=== PATIENT | female | born 1930 | race Caucasian/White ===

== ENCOUNTER 2017-02-12 19:11 | Emergency (ER) | payer MEDICARE, OTHER ==
[2017-02-12] MEDS ORDERED: Sodium Chloride 0.9% 10 ML Syringe FLUSH PRN (19:39)
[2017-02-12] MEDS ORDERED: LORazepam 2 MG/ML MDV IVPUSH ONE (19:39)
[2017-02-12] MEDS ORDERED: Ondansetron 4 MG/2 ML SDV IVPUSH ONE (19:39)
[2017-02-12] MEDS ORDERED: Famotidine 20 MG/2 ML SDV IVPUSH ONE (19:39)
--- NOTE | 2017-02-12 21:05 | EDM.PDOC ---
ED HISTORY OF PRESENT ILLNESS - General Chief Complaint: Chest Pain Stated Complaint: CHEST PAIN VOMITING Time Seen by Provider: 02/12/17 19:29 Source of Information: Reports: Patient - History of Present Illness INITIAL COMMENTS - FREE TEXT/NARRATIVE: 86 year old female not feeling well since eating out yesterday noon, had some salsa that seemed to upset her stomach. No appetite today, than started with upper abd pain radiating up into chest, has had nausea this past afternoon, dry heaves, no diarrhea. No hx of CAD. Not short of breath. No pain to shoulder or arm. She has not been coughing. No known hx of CAD - Related Data Allergies/ADRs: Allergies Allergy/AdvReac Type Severity Reaction Status Date / Time No Known Allergies Allergy Verified 02/12/17 19:17 Home Meds: Home Meds Calcium Carbonate [Calcium] 500 mg PO DAILY 07/27/15 [History] Clopidogrel [Plavix] 75 mg PO DAILY 07/27/15 [History] Escitalopram [Lexapro] 20 mg PO DAILY 07/27/15 [History] Gabapentin [Neurontin] 300 mg PO BEDTIME 07/27/15 [History] Glucosamine/Chondro Smith A [Cosamin DS] 1 tab PO DAILY 07/27/15 [History] Levothyroxine [Synthroid] 100 mcg PO DAILY 07/27/15 [History] Multivitamin [One Daily Multivitamin] 1 tab PO DAILY 07/27/15 [History] Simvastatin [Zocor] 20 mg PO BEDTIME 07/27/15 [History] traMADol [Ultram] 50 mg PO BID PRN 07/27/15 [History] Docusate Sodium [Colace] 100 mg PO BID cap 01/14/16 [Rx] Diclofenac Sodium [Voltaren 1% Gel] 1 dose TOP BID 02/12/17 [History] Ondansetron [Zofran ODT] 4 mg PO Q8H PRN #7 tab.dis 02/12/17 [Rx] Pramipexole [Mirapex] 0.5 mg PO DAILY 02/12/17 [History] Past Medical History HEENT History: Reports: Hard of hearing, Impaired vision Other HEENT History: wears eyeglasses, hearing aids, dentures Cardiovascular History: Reports: High cholesterol Other Cardiovascular History: states is on Zocor for prevention of stroke, does not have high cholesterol. Gastrointestinal History: Reports: Bowel obstruction, Chronic constipation, Diverticulosis Other Gastrointestinal History: nausea/vomiting, small bowel resection Genitourinary History: Reports: Urinary incontinence Other Genitourinary History: cystocele, rectocele, pelvic orgran prolapse [employer]CH[employer]IC[employer] History: Reports: , Prolapsed uterus Musculoskeletal History: Reports: Arthritis, Osteoporosis Other Musculoskeletal History: DJD Neurological History: Reports: Migraines Other Neuro History: states mother had stroke, states was started on Plavix and Zocor for preventative measures only. 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 - Past Surgical History HEENT Surgical History: Reports: Cataract surgery, Naso-sinus surgery Other HEENT Surgeries/Procedures: Nasal obstruction GI Surgical History: Reports: Small bowel Female Surgical History: Reports: Hysterectomy Endocrine Surgical History: Reports: Thyroidectomy Musculoskeletal Surgical History: Reports: Knee replacement Social & Family History - Family History Family Medical History: Noncontributory Neurological: Reports: CVA - Tobacco Use Smoking Status *Q: Never Smoker Second Hand Smoke Exposure: No - Recreational Drug Use Recreational Drug Use: No Drug Use in Last 12 Months: No - Living Situation & Occupation Living situation: Reports: , with spouse Occupation: retired ED ROS GENERAL - Review of Systems Review Of Systems: See Below Constitutional: Denies: fever, chills, diaphoresis HEENT: Reports: No symptoms. Denies: Throat pain, Throat swelling Respiratory: Denies: Shortness of Breath, Pleuritic Chest Pain, Cough Cardiovascular: Reports: Chest pain (mild discomfort lower ant. chest). Denies : Edema, Lightheadedness, Syncope GI/Abdominal: Reports: Abdominal pain (upper mid abd), Nausea (gone), Vomiting ( she has had some dry heaves). Denies: Diarrhea Musculoskeletal: Denies: neck pain, shoulder pain, arm pain Skin: Reports: no symptoms Neurological: Reports: Dizziness. Denies: Trouble Speaking, Change in Speech ED EXAM, GENERAL - Physical Exam Exam: See Below General Appearance: alert, anxious, mild distress Eye Exam: bilateral eye: PERRL Throat/Mouth: Normal inspection, Normal oropharynx Head: atraumatic. No: facial swelling Neck: supple, full range of motion, other (no JVD) Respiratory/Chest: no respiratory distress, lungs clear, normal breath sounds Cardiovascular: regular rate, rhythm GI/Abdominal: tender (mild tenderness upper mid abd. ). No: guarding Back Exam: No: CVA tenderness (L), CVA tenderness (R) Extremities: normal inspection. No: pedal edema, leg pain, increased warmth, redness Neurological: alert, oriented, no motor/sensory deficits Skin Exam: Warm, Dry, Normal color EKG INTERPRETATION EKG Date: 02/12/17 Rhythm: NSR Dale: normal P-wave: present QRS: other (q waves III and AVF) ST-T: depressed (AVL, V5,V6) Course - Vital Signs Last Recorded V/S: Last Vital Signs Temp 98.1 F 02/12/17 21:20 Pulse 72 02/12/17 21:20 Resp 20 02/12/17 21:20 BP 115/64 02/12/17 21:20 Pulse Ox 96 02/12/17 21:20 - Orders/Labs/Meds Labs: Laboratory Tests 02/12/17 02/12/17 Range/Units 19:25 19:25 WBC 6.58 (3.98-10.04) K/mm3 RBC 4.41 (3.98-5.22) M/mm3 Hgb 13.0 (11.2-15.7) gm/L Hct 37.6 (34.1-44.9) % MCV 85.3 (79.4-94.8) fl MCH 29.5 (25.6-32.2) pg MCHC 34.6 (32.2-35.5) g/dl RDW Std Deviation 41.1 (36.4-46.3) fL Plt Count 208 (182-369) K/mm3 MPV 10.3 (9.4-12.3) fl Neut % (Auto) 92.0 H (34.0-71.1) % Lymph % (Auto) 3.6 L (19.3-51.7) % Griggs % (Auto) 4.0 L (4.7-12.5) % Eos % (Auto) 0 L (0.7-5.8) Baso % (Auto) 0.2 (0.1-1.2) % Neut # (Auto) 6.06 (1.56-6.13) K/mm3 Lymph # (Auto) 0.24 L (1.18-3.74) K/mm3 Griggs # (Auto) 0.26 (0.24-0.36) K/mm3 Eos # (Auto) 0.00 L (0.04-0.36) K/mm3 Baso # (Auto) 0.01 (0.01-0.08) K/mm3 Manual Slide Review Abnormal smear Sodium 139 (136-145) mEq/L Potassium 3.9 (3.5-5.1) mEq/L Chloride 104 (98-107) mEq/L Carbon Dioxide 28 (21-32) mEq/L Anion Gap 10.9 (5-15) BUN 21 H (7-18) mg/dL Creatinine 0.7 (0.55-1.02) mg/dL Est Cr Clr Drug Dosing 47.96 mL/min Estimated GFR (MDRD) > 60 (>60) mL/min BUN/Creatinine Ratio 30.0 H (14-18) Glucose 127 H (83-115) mg/dL Calcium 8.6 (8.5-10.1) mg/dL Total Bilirubin 0.4 (0.2-1.0) mg/dL AST 18 (15-37) U/L ALT 19 (14-59) U/L Alkaline Phosphatase 67 (46-116) U/L Troponin I < 0.017 (0.00-0.056) ng/mL Total Protein 6.8 (6.4-8.2) g/dl Albumin 3.7 (3.4-5.0) g/dl Globulin 3.1 gm/dL Albumin/Globulin Ratio 1.2 (1-2) Lipase 109 (73-393) U/L Meds: Medications Discontinued Medications Generic Name Dose Route Start Last Admin Trade Name Freq PRN Reason Stop Dose Admin Famotidine 20 mg 02/12/17 19:39 02/12/17 19:52 Pepcid IVPUSH 02/12/17 19:40 20 mg ONETIME ONE Administration Lorazepam 0.25 mg 02/12/17 19:39 02/12/17 19:50 Ativan IVPUSH 02/12/17 19:40 0.25 mg ONETIME ONE Administration Ondansetron HCl 4 mg 02/12/17 19:39 02/12/17 19:52 Zofran IVPUSH 02/12/17 19:40 4 mg ONETIME ONE Administration Sodium Chloride 10 ml 02/12/17 19:39 02/12/17 19:52 Saline Flush FLUSH 10 ml ASDIRECTED PRN Administration Keep Vein Open - Re-Assessments/Exams Free Text/Narrative Re-Assessment/Exam: 02/13/17 21:05 EKG did not show acute changes. Because she was quite anxious and mildly uncomfortable on arrival we did treat with Zofran, pepcid and 0.25 mg ativan IV. With that her discomfort and nausea resolved. trop was nl, other labs relative nl. CXR no acute findings. She felt comfortable to go home. Discharge instr. as documented. Departure - Departure Time of Disposition: 21:02 Disposition: Home, Self-Care 01 Condition: fair Clinical Impression: Atypical chest pain Gastroesophageal reflux disease Qualifiers: Esophagitis presence: esophagitis presence not specified Qualified Code(s): K21.9 - Gastro-esophageal reflux disease without esophagitis Prescriptions: Ondansetron [Zofran ODT] 4 mg PO Q8H PRN #7 tab.dis PRN Reason: Nausea/Vomiting Instructions: Nonspecific Chest Pain, [id number], Gastroesophageal Reflux Disease, Adult Referrals: Susan Salcedo PA-C [Primary Care Provider] - Forms: ED Department Discharge Additional Instructions: clear liquids until tomorrow afternoon, than careful bland diet as tolerated, zofran if needed for further nausea or vomiting, I do recomend that you take pepcid (famotidine) available OTC 20 mg twice daily for 1 week and there after if needed for further reflux problems. You can pick the pepcid up in the morning at [facility] or your pharmacy. Follow up clinic as needed, return to ED if sx worsening in any way.
[2017-02-12 22:05] VITALS: BP 115/64
--- NOTE | 2017-02-13 06:52 | CR ---
Chest: Portable view of the chest was obtained. Comparison: Previous chest x-ray of 05/19/11 is available. Scoliosis and degenerative change partially visualized within the spine. Bony structures are osteoporotic. Heart size is mildly enlarged. Tortuous thoracic aorta is seen. Lungs are clear. Impression: 1. Incidental findings. Nothing acute is identified on portable chest x-ray. No significant change is seen from prior study. Diagnostic code #2
== END 2017-02-12 21:20 | disposition home or self-care (01) ==
LOC: JD.ED 19:11
DX: K21.9 Gastro-esophageal reflux disease without esophagitis (principal); E78.00 Pure hypercholesterolemia, unspecified; M81.0 Age-related osteoporosis without current pathological fracture; E03.9 Hypothyroidism, unspecified; M19.90 Unspecified osteoarthritis, unspecified site; G43.909 Migraine, unspecified, not intractable, without status migrainosus; F41.9 Anxiety disorder, unspecified; Z85.828 Personal history of other malignant neoplasm of skin; Z79.02 Long term (current) use of antithrombotics/antiplatelets; Z79.899 Other long term (current) drug therapy; Z90.710 Acquired absence of both cervix and uterus; Z96.659 Presence of unspecified artificial knee joint; Z98.890 Other specified postprocedural states; Z98.49 Cataract extraction status, unspecified eye; E89.0 Postprocedural hypothyroidism
CPT/HCPCS: 36415; 71010; 80053; 83690; 84484; 85025; 93005; 96374; 96375; 99285; J2060; J2405; J7050

== ENCOUNTER 2018-01-05 10:48 | Inpatient (IN) | payer MEDICARE, OTHER ==
--- NOTE | 2018-01-05 11:19 | EDM.PDOC ---
ED HPI GENERAL MEDICAL PROBLEM - General Chief Complaint: Chest Pain Stated Complaint: [facility] Time Seen by Provider: 01/05/18 11:04 Source of Information: Reports: Patient, EMS History Limitations: Reports: No Limitations - History of Present Illness INITIAL COMMENTS - FREE TEXT/NARRATIVE: Patient is a 87 y/o female who presents to the E.D. complaining of chest pain, palpitations, dizziness. This occurred upon awakening this morning approximately 9:30. Patient states last night she had difficulty in getting to sleep and thus took 2 Tylenol PM's and did not sleep at all last night. Patient is anxious. States symptoms are drastically worsen with standing up. States the discomfort to her chest was described as a pressure Sensation to Her Heart Rate Out Of 10 Out Of 10 with Onset Only Lasted Approximate 60 Seconds. She Did Feel a Heaviness over Her Body and [place] Weak As Well. There Is No Shortness of Breath or Diaphoresis. She Does Have a History of Anxiety. She Denies Any Increasing Weight Gain, Increased Edema to Her Lower Extremities, PND, or Orthopnea. She Has No History of A. fib. Patient lives at home with her . Patient denies any history of coronary disease, hypertension, diabetes , and or hypercholesterolemia. - Related Data Allergies Allergy/AdvReac Type Severity Reaction Status Date / Time No Known Allergies Allergy Verified 01/05/18 11:00 Home Meds: Home Meds Clopidogrel [Plavix] 75 mg PO DAILY 07/27/15 [History] Escitalopram [Lexapro] 20 mg PO DAILY 07/27/15 [History] Gabapentin [Neurontin] 300 mg PO BEDTIME 07/27/15 [History] Glucosamine/Chondro Smith A [Cosamin DS] 1 tab PO DAILY 07/27/15 [History] Levothyroxine [Synthroid] 100 mcg PO DAILY 07/27/15 [History] traMADol [Ultram] 50 mg PO BID PRN 07/27/15 [History] Diclofenac Sodium [Voltaren 1% Gel] 1 dose TOP BID PRN 02/12/17 [History] Pramipexole [Mirapex] 0.5 mg PO BEDTIME 02/12/17 [History] Acetaminophen 325 mg PO BEDTIME PRN 01/05/18 [History] L.acidoph,Paracasei, B.lactis [Probiotic] 1 each PO DAILY 01/05/18 [History] Past Medical History HEENT History: Reports: Hard of Hearing, Impaired Vision Other HEENT History: wears eyeglasses, hearing aids, dentures Cardiovascular History: Reports: High Cholesterol Other Cardiovascular History: states is on Zocor for prevention of stroke, does not have high cholesterol. Gastrointestinal History: Reports: Bowel Obstruction, Chronic Constipation, Diverticulosis Other Gastrointestinal History: nausea/vomiting, small bowel resection Genitourinary History: Reports: Urinary Incontinence Other Genitourinary History: cystocele, rectocele, pelvic orgran prolapse STATION WORKER History: Reports: , Prolapsed Uterus Musculoskeletal History: Reports: Arthritis, Osteoporosis Other Musculoskeletal History: DJD Neurological History: Reports: Migraines Other Neuro History: states mother had stroke, states was started on Plavix and Zocor for preventative measures only. 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 - Past Surgical History HEENT Surgical History: Reports: Cataract Surgery, Naso-Sinus Surgery GI Surgical History: Reports: Small Bowel Endocrine Surgical History: Reports: Thyroidectomy Musculoskeletal Surgical History: Reports: Knee Replacement Social & Family History - Family History Family Medical History: Noncontributory Neurological: Reports: CVA - Tobacco Use Smoking Status *Q: Never Smoker Second Hand Smoke Exposure: No - Caffeine Use Caffeine Use: Reports: None - Recreational Drug Use Recreational Drug Use: No Drug Use in Last 12 Months: No - Living Situation & Occupation Living situation: Reports: , with Spouse Occupation: Retired ED ROS GENERAL - Review of Systems Review Of Systems: ROS reveals no pertinent complaints other than HPI. ED EXAM, GENERAL - Physical Exam Exam: See Below Exam Limited By: No Limitations General Appearance: Alert, WD/WN, Anxious Ears: Hearing Grossly Normal Nose: Normal Inspection Throat/Mouth: Normal Voice, No Airway Compromise Neck: Normal Inspection, Supple Respiratory/Chest: No Respiratory Distress, Lungs Clear, Normal Breath Sounds, No Accessory Muscle Use Cardiovascular: Normal Peripheral Pulses, Regular Rate, Rhythm, No Murmur ( Obvious) Peripheral Pulses: 2+: Posterior Tibial (L), Posterior Tibial (R), 3+: Radial (L ), Radial (R) GI/Abdominal: Normal Bowel Sounds, Soft, Non-Tender, No Organomegaly, No Distention Extremities: Normal Inspection, Normal Range of Motion, Non-Tender, No Pedal Edema, Normal Capillary Refill Neurological: Alert, Oriented, CN II-XII Intact, Normal Cognition, No Motor/ Sensory Deficits Psychiatric: Normal Affect, Normal Mood Skin Exam: Warm, Dry, Intact, Normal Color, No Rash Course - Vital Signs Last Recorded V/S: Last Vital Signs Temp 98.3 F 01/06/18 10:23 Pulse 92 01/06/18 10:23 Resp 16 01/06/18 10:23 BP 109/68 01/06/18 10:23 Pulse Ox 96 01/06/18 10:23 Orthostatic Blood Pressure [ 91/58 Standing] Orthostatic Blood Pressure [ 126/65 Sitting] Orthostatic Blood Pressure [ 112/68 Supine] - Orders/Labs/Meds Orders: Active Orders 24 hr Category Date Time Status Hemoccult [Fecal Occult Blood Collection] [] Care 01/05/18 14:05 Active ASDIRECTED Orthostatic Vital Signs [RC] ASDIRECTED Care 01/05/18 13:23 Active Orthostatic Vital Signs [RC] ASDIRECTED Care 01/05/18 14:21 Active Orthostatic Vital Signs [RC] ASDIRECTED Care 01/05/18 15:47 Active STREP PNEUMONIAE ANTIGEN [MREF] Stat Lab 01/05/18 13:17 Received Medication Orders Buspirone HCl (Buspar) 7.5 mg PO BID [facility] Citalopram Hydrobromide (Celexa) 40 mg PO DAILY [facility] Last Admin: 01/06/18 09:23 Dose: 40 mg Clopidogrel Bisulfate (Plavix) 75 mg PO DAILY [facility] Last Admin: 01/06/18 09:23 Dose: 75 mg Enoxaparin Sodium (Lovenox) 40 mg SUBCUT DAILY [facility] Last Admin: 01/06/18 09:24 Dose: 40 mg Furosemide (Lasix) 20 mg IVPUSH ASDIRECTED PRN PRN Reason: Bleeding Gabapentin (Neurontin) 300 mg PO TID [facility] Sodium Chloride (Normal Saline) 250 mls @ 25 mls/hr IV ASDIRECTED [facility] Last Admin: 01/06/18 09:25 Dose: 25 mls/hr Levothyroxine Sodium (Synthroid) 100 mcg PO ACBREAKFAST [facility] Last Admin: 01/06/18 05:39 Dose: 100 mcg Lorazepam (Ativan) 0.5 mg IVPUSH Q8H PRN PRN Reason: Anxiety Last Admin: 01/06/18 03:18 Dose: 0.5 mg Admin: 01/05/18 18:56 Dose: 0.5 mg (Glucosamine/Chondro Smith A [Cosamin Ds] 1 Tab)Own Med 1 tab PO DAILY [facility] Pramipexole Dihydrochloride (Mirapex) 0.5 mg PO BEDTIME NANCY Last Admin: 01/05/18 21:36 Dose: 0.5 mg Ropinirole HCl (Requip) 1 mg PO BID NANCY Saccharomyces Boulardii (Florastor) 500 mg PO DAILY NANCY Last Admin: 01/06/18 09:24 Dose: 500 mg Temazepam (Restoril) 7.5 mg PO BEDTIME PRN PRN Reason: Insomnia Last Admin: 01/05/18 21:36 Dose: 7.5 mg Tramadol HCl (Ultram) 50 mg PO BID PRN PRN Reason: Pain Last Admin: 01/05/18 18:12 Dose: 50 mg Labs: Laboratory Tests 01/05/18 01/05/18 01/05/18 Range/Units 11:30 11:30 11:30 WBC 5.45 (3.98-10.04) K/mm3 RBC 3.58 L (3.98-5.22) M/mm3 Hgb 10.3 L (11.2-15.7) gm/L Hct 31.9 L (34.1-44.9) % MCV 89.1 (79.4-94.8) fl MCH 28.8 (25.6-32.2) pg MCHC 32.3 (32.2-35.5) g/dl RDW Std Deviation 42.8 (36.4-46.3) fL Plt Count 214 (182-369) K/mm3 MPV 10.1 (9.4-12.3) fl Neut % (Auto) 68.4 (34.0-71.1) % Lymph % (Auto) 18.2 L (19.3-51.7) % Reynolds % (Auto) 11.6 (4.7-12.5) % Eos % (Auto) 0.9 (0.7-5.8) Baso % (Auto) 0.9 (0.1-1.2) % Neut # (Auto) 3.73 (1.56-6.13) K/mm3 Lymph # (Auto) 0.99 L (1.18-3.74) K/mm3 Reynolds # (Auto) 0.63 H (0.24-0.36) K/mm3 Eos # (Auto) 0.05 (0.04-0.36) K/mm3 Baso # (Auto) 0.05 (0.01-0.08) K/mm3 PT 11.6 (8.0-13.0) SECONDS INR 1.06 APTT (22-36) SECONDS Sodium 138 (136-145) mEq/L Potassium 4.5 (3.5-5.1) mEq/L Chloride 107 (98-107) mEq/L Carbon Dioxide 24 (21-32) mEq/L Anion Gap 11.5 (5-15) BUN 44 H (7-18) mg/dL Creatinine 0.7 (0.55-1.02) mg/dL Est Cr Clr Drug Dosing 48.74 mL/min Estimated GFR (MDRD) > 60 (>60) mL/min BUN/Creatinine Ratio 62.9 H (14-18) Glucose 92 (83-115) mg/dL Calcium 8.5 (8.5-10.1) mg/dL Total Bilirubin 0.3 (0.2-1.0) mg/dL AST 17 (15-37) U/L ALT 18 (14-59) U/L Alkaline Phosphatase 54 (46-116) U/L Troponin I < 0.017 (0.00-0.056) ng/mL C-Reactive Protein < 0.2 (<1.0) mg/dL Total Protein 6.2 L (6.4-8.2) g/dl Albumin 3.1 L (3.4-5.0) g/dl Globulin 3.1 gm/dL Albumin/Globulin Ratio 1.0 (1-2) TSH 3rd Generation 1.004 (0.358-3.74) uIU/mL Urine Color (Yellow) Urine Appearance (Clear) Urine pH (5.0-8.0) Ur Specific [place] (1.005-1.030) Urine Protein (Negative) Urine Glucose (UA) (Negative) Urine Ketones (Negative) Urine Occult Blood (Negative) Urine Nitrite (Negative) Urine Bilirubin (Negative) Urine Urobilinogen (0.2-1.0) Ur Leukocyte Esterase (Negative) Urine RBC (0-5) /hpf Urine WBC (0-5) /hpf Ur Epithelial Cells (0-5) /hpf Urine Bacteria (FEW) /hpf Urine Mucus (FEW) /hpf Mycoplasma pneumon IgM (NEGATIVE) 01/05/18 01/05/18 01/05/18 Range/Units 11:30 13:17 14:20 WBC (3.98-10.04) K/mm3 RBC (3.98-5.22) M/mm3 Hgb (11.2-15.7) gm/L Hct (34.1-44.9) % MCV (79.4-94.8) fl MCH (25.6-32.2) pg MCHC (32.2-35.5) g/dl RDW Std Deviation (36.4-46.3) fL Plt Count (182-369) K/mm3 MPV (9.4-12.3) fl Neut % (Auto) (34.0-71.1) % Lymph % (Auto) (19.3-51.7) % Reynolds % (Auto) (4.7-12.5) % Eos % (Auto) (0.7-5.8) Baso % (Auto) (0.1-1.2) % Neut # (Auto) (1.56-6.13) K/mm3 Lymph # (Auto) (1.18-3.74) K/mm3 Reynolds # (Auto) (0.24-0.36) K/mm3 Eos # (Auto) (0.04-0.36) K/mm3 Baso # (Auto) (0.01-0.08) K/mm3 PT (8.0-13.0) SECONDS INR APTT 26 (22-36) SECONDS Sodium (136-145) mEq/L Potassium (3.5-5.1) mEq/L Chloride (98-107) mEq/L Carbon Dioxide (21-32) mEq/L Anion Gap (5-15) BUN (7-18) mg/dL Creatinine (0.55-1.02) mg/dL Est Cr Clr Drug Dosing mL/min Estimated GFR (MDRD) (>60) mL/min BUN/Creatinine Ratio (14-18) Glucose (83-115) mg/dL Calcium (8.5-10.1) mg/dL Total Bilirubin (0.2-1.0) mg/dL AST (15-37) U/L ALT (14-59) U/L Alkaline Phosphatase (46-116) U/L Troponin I < 0.017 (0.00-0.056) ng/mL C-Reactive Protein (<1.0) mg/dL Total Protein (6.4-8.2) g/dl Albumin (3.4-5.0) g/dl Globulin gm/dL Albumin/Globulin Ratio (1-2) TSH 3rd Generation (0.358-3.74) uIU/mL Urine Color Yellow (Yellow) Urine Appearance Clear (Clear) Urine pH 7.5 (5.0-8.0) Ur Specific [place] 1.020 (1.005-1.030) Urine Protein Negative (Negative) Urine Glucose (UA) Negative (Negative) Urine Ketones Negative (Negative) Urine Occult Blood Negative (Negative) Urine Nitrite Negative (Negative) Urine Bilirubin Negative (Negative) Urine Urobilinogen 0.2 (0.2-1.0) Ur Leukocyte Esterase Trace H (Negative) Urine RBC Not seen (0-5) /hpf Urine WBC 0-5 (0-5) /hpf Ur Epithelial Cells 0-5 (0-5) /hpf Urine Bacteria Few (FEW) /hpf Urine Mucus Not seen (FEW) /hpf Mycoplasma pneumon IgM (NEGATIVE) 01/05/18 Range/Units 14:20 WBC (3.98-10.04) K/mm3 RBC (3.98-5.22) M/mm3 Hgb (11.2-15.7) gm/L Hct (34.1-44.9) % MCV (79.4-94.8) fl MCH (25.6-32.2) pg MCHC (32.2-35.5) g/dl RDW Std Deviation (36.4-46.3) fL Plt Count (182-369) K/mm3 MPV (9.4-12.3) fl Neut % (Auto) (34.0-71.1) % Lymph % (Auto) (19.3-51.7) % Reynolds % (Auto) (4.7-12.5) % Eos % (Auto) (0.7-5.8) Baso % (Auto) (0.1-1.2) % Neut # (Auto) (1.56-6.13) K/mm3 Lymph # (Auto) (1.18-3.74) K/mm3 Reynolds # (Auto) (0.24-0.36) K/mm3 Eos # (Auto) (0.04-0.36) K/mm3 Baso # (Auto) (0.01-0.08) K/mm3 PT (8.0-13.0) SECONDS INR APTT (22-36) SECONDS Sodium (136-145) mEq/L Potassium (3.5-5.1) mEq/L Chloride (98-107) mEq/L Carbon Dioxide (21-32) mEq/L Anion Gap (5-15) BUN (7-18) mg/dL Creatinine (0.55-1.02) mg/dL Est Cr Clr Drug Dosing mL/min Estimated GFR (MDRD) (>60) mL/min BUN/Creatinine Ratio (14-18) Glucose (83-115) mg/dL Calcium (8.5-10.1) mg/dL Total Bilirubin (0.2-1.0) mg/dL AST (15-37) U/L ALT (14-59) U/L Alkaline Phosphatase (46-116) U/L Troponin I (0.00-0.056) ng/mL C-Reactive Protein (<1.0) mg/dL Total Protein (6.4-8.2) g/dl Albumin (3.4-5.0) g/dl Globulin gm/dL Albumin/Globulin Ratio (1-2) TSH 3rd Generation (0.358-3.74) uIU/mL Urine Color (Yellow) Urine Appearance (Clear) Urine pH (5.0-8.0) Ur Specific [place] (1.005-1.030) Urine Protein (Negative) Urine Glucose (UA) (Negative) Urine Ketones (Negative) Urine Occult Blood (Negative) Urine Nitrite (Negative) Urine Bilirubin (Negative) Urine Urobilinogen (0.2-1.0) Ur Leukocyte Esterase (Negative) Urine RBC (0-5) /hpf Urine WBC (0-5) /hpf Ur Epithelial Cells (0-5) /hpf Urine Bacteria (FEW) /hpf Urine Mucus (FEW) /hpf Mycoplasma pneumon IgM Negative (NEGATIVE) Meds: Medications Generic Name Dose Route Start Last Admin Trade Name Freq PRN Reason Stop Dose Admin Buspirone HCl 7.5 mg 01/06/18 10:15 Buspar PO BID NANCY Citalopram Hydrobromide 40 mg 01/06/18 09:00 01/06/18 09:23 Celexa PO 40 mg DAILY NANCY Administration Clopidogrel Bisulfate 75 mg 01/06/18 09:00 01/06/18 09:23 Plavix PO 75 mg DAILY NANCY Administration Enoxaparin Sodium 40 mg 01/06/18 09:00 01/06/18 09:24 Lovenox SUBCUT 40 mg DAILY NANCY Administration Furosemide 20 mg 01/06/18 07:41 Lasix IVPUSH ASDIRECTED PRN Bleeding Gabapentin 300 mg 01/06/18 15:00 Neurontin PO TID NANCY Sodium Chloride 250 mls @ 25 mls/hr 01/06/18 08:00 01/06/18 09:25 Normal Saline IV 25 mls/hr ASDIRECTED NANCY Administration Levothyroxine Sodium 100 mcg 01/06/18 06:00 01/06/18 05:39 Synthroid PO 100 mcg ACBREAKFAST NANCY Administration Lorazepam 0.5 mg 01/05/18 18:41 01/06/18 03:18 Ativan IVPUSH 0.5 mg Q8H PRN Administration Anxiety (Glucosamine/Chondro 1 tab 01/06/18 09:00 Smith A [Cosamin Ds] 1 PO Tab)Own Med DAILY NANCY Pramipexole Dihydrochloride 0.5 mg 01/05/18 21:00 01/05/18 21:36 Mirapex PO 0.5 mg BEDTIME NANCY Administration Ropinirole HCl 1 mg 01/06/18 10:30 Requip PO BID NANCY Saccharomyces Boulardii 500 mg 01/06/18 09:00 01/06/18 09:24 Florastor PO 500 mg DAILY NANCY Administration Temazepam 7.5 mg 01/05/18 19:37 01/05/18 21:36 Restoril PO 7.5 mg BEDTIME PRN Administration Insomnia Tramadol HCl 50 mg 01/05/18 17:46 01/05/18 18:12 Ultram PO 50 mg BID PRN Administration Pain Discontinued Medications Generic Name Dose Route Start Last Admin Trade Name Freq PRN Reason Stop Dose Admin Gabapentin 300 mg 01/05/18 21:00 01/05/18 20:06 Neurontin PO Not Given BEDTIME NANCY Gabapentin 300 mg 01/05/18 18:02 01/05/18 18:08 Neurontin PO 01/05/18 18:03 300 mg ONETIME ONE Administration Gabapentin 300 mg 01/05/18 23:21 01/05/18 23:38 Neurontin PO 01/05/18 23:22 300 mg ONETIME ONE Administration Sodium Chloride 500 mls @ 999 mls/hr 01/05/18 13:29 01/05/18 13:39 Normal Saline IV 01/05/18 13:59 999 mls/hr .BOLUS ONE Administration Sodium Chloride 500 mls @ 999 mls/hr 01/05/18 16:19 01/05/18 16:30 Normal Saline IV 01/05/18 16:49 999 mls/hr .BOLUS ONE Administration Sodium Chloride 500 mls @ 500 mls/hr 01/05/18 18:15 01/05/18 18:56 Normal Saline IV 01/05/18 19:14 500 mls/hr ONETIME ONE Administration Sodium Chloride 1,000 mls @ 100 mls/hr 01/05/18 19:15 01/05/18 21:47 Normal Saline IV 100 mls/hr ASDIRECTED NANCY Administration Lorazepam 0.25 mg 01/05/18 16:54 01/05/18 17:58 Ativan IVPUSH 01/05/18 16:55 Not Given ONETIME ONE Lorazepam 0.5 mg 01/05/18 23:19 01/05/18 23:38 Ativan IVPUSH 01/05/18 23:20 0.5 mg ONETIME ONE Administration Non-Formulary Medication 1 each 01/06/18 09:00 L.Acidoph,Paracasei, B.Lactis [Probiotic] PO DAILY [facility] Pramipexole Dihydrochloride 0.5 mg 01/05/18 21:00 01/06/18 01:14 Mirapex PO Not Given BEDTIME NANCY Pramipexole Dihydrochloride 0.5 mg 01/05/18 18:01 01/05/18 19:08 Mirapex PO 01/05/18 18:02 Not Given BEDTIME ONE Pramipexole Dihydrochloride 0.5 mg 01/06/18 21:00 Mirapex PO BEDTIME NANCY Pramipexole Dihydrochloride 0.5 mg 01/06/18 23:21 Mirapex PO 01/06/18 23:22 ONETIME ONE Pramipexole Dihydrochloride 0.5 mg 01/05/18 23:45 Mirapex PO 01/05/18 23:46 ONETIME ONE Pramipexole Dihydrochloride 0.5 mg 01/05/18 23:45 01/05/18 23:44 Mirapex PO 01/05/18 23:46 0.5 mg ONETIME ONE Administration - Re-Assessments/Exams Free Text/Narrative Re-Assessment/Exam: IV established by ambulance crew. Initial lab studies will include CBC, chem 14 , CRP, coag studies, troponin, TSH, UA, and chest x-ray one view. EKG obtained sinus rhythm at a rate of [address] changes noted. Second troponin will be obtained 3 hours from initial blood draw 11:19. CXR unchanged from previous study January 2107. Final interpretation is pending. Labs reviewed: Labs reviewed: Hemoglobin 10.3 which is a decrease from previous labs dated December 19, 2017 of 12.6. Platelet count 214. Coag studies revealed no concerning findings. BUNs was 44. Current 0.7. Troponin less than 0.017. TSH 1.004. With decreasing hemoglobin with elevated BUN will also check stool for blood present. 01/05/18 13:24 Per nursing staff patient got up and walked to utilize the bathroom. States with walking and standing patient felt like her heart was racing developed pain to her chest and became weak. Upon return back to the room. Orthostatic vitals will be obtained. 01/05/18 13:29 Per nursing staff patient's became quite dizzy and complained of her heart swelling with standing while checking her blood pressures. We'll start a bolus of normal saline 500 mls. Reassessment, patient resting comfortably in bed with no complaints at this time. When asking about sensation of her heart swelling she states she has palpitations. When reviewing blood pressures that were recorded on the monitor with standing it was 75 over systolic. Patient is orthostatic for unclear etiology. UA positive leukocyte Estrace otherwise no abnormal findings. Of note patient did admit to having a stomachache last night. No aida red blood present. She states she had black tarry stools this morning. Stool Hemoccult was negative for blood. Per nursing staff recheck of orthostatic vitals. With standing patient's systolic blood pressures still 80. Additional fluid bolus of 500 mls of normal saline will be started. Second troponin is WNL. Second fluid bolus was administered. Orthostatic vitals obtained. Patient's blood pressure remained 90s over systolic with standing and patient became weak and dizzy. [address] [facility] vice president education hospitalist and she has accepted patient. MCG will completed. Suggested ordering strep pneumo, mycoplasma, and also influenza screen. 3rd bolus of NS 500 mls ordered. Patient meets inpatient criteria per MCG. Patient complaining of restless leg syndrome. Ordered 0.25 mg Ativan IVP. Departure - Departure Time of Disposition: 16:15 Disposition: Admitted As Inpatient 67 Condition: Good Clinical Impression: Orthostatic hypotension, Dizziness, Anxiety Anemia Qualifiers: Anemia type: unspecified type Qualified Code(s): D64.9 - Anemia, unspecified - My Orders Last 24 Hours: My Active Orders 01/05/18 13:17 STREP PNEUMONIAE ANTIGEN [MREF] Stat 01/05/18 13:23 Orthostatic Vital Signs [RC] ASDIRECTED 01/05/18 14:05 Hemoccult [Fecal Occult Blood Collection] [RC] ASDIRECTED 01/05/18 14:21 Orthostatic Vital Signs [RC] ASDIRECTED 01/05/18 15:47 Orthostatic Vital Signs [RC] ASDIRECTED - Assessment/Plan Last 24 Hours: My Active Orders 01/05/18 13:17 STREP PNEUMONIAE ANTIGEN [MREF] Stat 01/05/18 13:23 Orthostatic Vital Signs [RC] ASDIRECTED 01/05/18 14:05 Hemoccult [Fecal Occult Blood Collection] [RC] ASDIRECTED 01/05/18 14:21 Orthostatic Vital Signs [RC] ASDIRECTED 01/05/18 15:47 Orthostatic Vital Signs [RC] ASDIRECTED
[2018-01-05] MEDS ORDERED: Sodium Chloride 0.9% 500 ML IV ONE ×3 (13:29→18:15)
--- NOTE | 2018-01-05 14:44 | CR ---
Chest: Portable view of the chest was obtained. Comparison: Prior chest x-ray of 02/12/17. Heart size appears within normal limits. Tortuous thoracic aorta is seen. Scoliosis is noted within the spine. Bony structures are diffusely osteopenic. Lobulated left hemidiaphragm is seen. Lungs are clear with nothing acute seen. Impression: 1. Incidental findings. Nothing acute is seen on portable chest x-ray. Diagnostic code #2
[2018-01-05] MEDS ORDERED: LORazepam 2 MG/ML SDV IVPUSH ONE ×2 (16:54→23:19)
--- NOTE | 2018-01-05 17:21 | PCM.HP ---
H&P History of Present Illness - General Date of Service: 01/05/18 Admit Problem/Dx: Admission Diagnosis/Problem Admission Diagnosis/Problem Hypotension Source of Information: Provider History Limitations: Reports: No Limitations - History of Present Illness Initial Comments - Free Text/Narative: 87 year old female complaining of dizziness was found to be orthostatic in the ED. She has no apparent cardiac history but reported prophylactic use of Plavix for CVA prevention. The patient has described an experience of chest heaviness associated with generalized weakness and fatigue. However the patient primarily described restless legs when seen by the hospitalist service. IVF of two 500 cc boluses were given. She will be admitted [facility] with telemetry. Onset of Symptoms: Reports: Sudden Symptom Onset Date: 01/04/18 Duration of Symptoms: Reports: Hour(s):, Getting Worse Location: Reports: Chest, Generalized Severity: Moderate Improves with: Reports: Medication Worsens with: Reports: None Associated Symptoms: Reports: Chest Pain, Shortness of Breath, Weakness - Related Data Allergies/Adverse Reactions: Allergies Allergy/AdvReac Type Severity Reaction Status Date / Time No Known Allergies Allergy Verified 01/05/18 11:00 Home Medications: Home Meds Clopidogrel [Plavix] 75 mg PO DAILY 07/27/15 [History] Escitalopram [Lexapro] 20 mg PO DAILY 07/27/15 [History] Gabapentin [Neurontin] 300 mg PO BEDTIME 07/27/15 [History] Glucosamine/Chondro Smith A [Cosamin DS] 1 tab PO DAILY 07/27/15 [History] Levothyroxine [Synthroid] 100 mcg PO DAILY 07/27/15 [History] traMADol [Ultram] 50 mg PO BID PRN 07/27/15 [History] Diclofenac Sodium [Voltaren 1% Gel] 1 dose TOP BID PRN 02/12/17 [History] Pramipexole [Mirapex] 0.5 mg PO BEDTIME 02/12/17 [History] Acetaminophen 325 mg PO BEDTIME PRN 01/05/18 [History] L.acidoph,Paracasei, B.lactis [Probiotic] 1 each PO DAILY 01/05/18 [History] Past Medical History HEENT History: Reports: Hard of Hearing, Impaired Vision Other HEENT History: wears eyeglasses, hearing aids, dentures Cardiovascular History: Reports: High Cholesterol Other Cardiovascular History: states is on Zocor for prevention of stroke, does not have high cholesterol. Gastrointestinal History: Reports: Bowel Obstruction, Chronic Constipation, Diverticulosis Other Gastrointestinal History: nausea/vomiting, small bowel resection Genitourinary History: Reports: Urinary Incontinence Other Genitourinary History: cystocele, rectocele, pelvic orgran prolapse [employer] History: Reports: , Prolapsed Uterus Musculoskeletal History: Reports: Arthritis, Osteoporosis Other Musculoskeletal History: DJD Neurological History: Reports: Migraines Other Neuro History: states mother had stroke, states was started on Plavix and Zocor for preventative measures only. 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 - Past Surgical History HEENT Surgical History: Reports: Cataract Surgery, Naso-Sinus Surgery GI Surgical History: Reports: Small Bowel Endocrine Surgical History: Reports: Thyroidectomy Musculoskeletal Surgical History: Reports: Knee Replacement Social & Family History - Family History Family Medical History: Noncontributory Neurological: Reports: CVA - Tobacco Use Smoking Status *Q: Never Smoker Second Hand Smoke Exposure: No - Caffeine Use Caffeine Use: Reports: None - Recreational Drug Use Recreational Drug Use: No Drug Use in Last 12 Months: No - Living Situation & Occupation Living situation: Reports: , with Spouse Occupation: Retired H&P Review of Systems - Review of Systems: Review Of Systems: See Below General: Reports: Weakness HEENT: Reports: No Symptoms Pulmonary: Reports: Shortness of Breath Cardiovascular: Reports: Chest Pain Gastrointestinal: Reports: No Symptoms Genitourinary: Reports: No Symptoms Musculoskeletal: Reports: No Symptoms Skin: Reports: No Symptoms Psychiatric: Reports: Confusion Neurological: Reports: Weakness Hematologic/Lymphatic: Reports: No Symptoms Immunologic: Reports: No Symptoms Exam - Exam Exam: See Below - Vital Signs Vital Signs: Last Vital Signs Temp 36.2 C 01/05/18 10:58 Pulse 77 01/05/18 10:58 Resp 16 01/05/18 10:58 BP 124/66 01/05/18 10:58 Pulse Ox 95 01/05/18 10:58 Weight: 53.524 kg - Exam Quality Assessment: Supplemental Oxygen, DVT Prophylaxis General: Alert, Oriented, Mild Distress (moving legs, restless) HEENT: Nares Patent, Normal Nasal Septum, Pupils Equal, Pupils Reactive, PERRLA Neck: Trachea Midline Lungs: Normal Respiratory Effort, Decreased Breath Sounds Cardiovascular: Regular Rate, Regular Rhythm GI/Abdominal Exam: Normal Bowel Sounds, Soft, Non-Tender, No Organomegaly, No Distention (Female) Exam: Deferred Rectal (Female) Exam: Deferred Back Exam: Normal Inspection Extremities: Normal Inspection Skin: Warm Neurological: Cranial Nerves Intact Neuro Extensive - Mental Status: Alert, Oriented x3 Neuro Extensive - Motor, Sensory, Reflexes: CN II-XII Intact Psychiatric: Alert - Patient Data Result Diagrams: 01/06/18 05:50 01/06/18 05:50 *Q Meaningful Use (ADM) - VTE *Q VTE Criteria *Q: - Stroke *Q Stroke Criteria *Q: - AMI *Q AMI Criteria *Q: - Problem List (1) Anemia SNOMED Code(s): 529954180 ICD Code: D64.9 - ANEMIA, UNSPECIFIED Status: Acute Current Visit: Yes Qualifiers: Anemia type: unspecified type Qualified Code(s): D64.9 - Anemia, unspecified (2) Anxiety SNOMED Code(s): 76211153 ICD Code: F41.9 - ANXIETY DISORDER, UNSPECIFIED Status: Acute Current Visit: Yes (3) Dizziness SNOMED Code(s): 265481324 ICD Code: R42 - DIZZINESS AND GIDDINESS Status: Acute Current Visit: Yes (4) Orthostatic hypotension SNOMED Code(s): 61571523 ICD Code: I95.1 - ORTHOSTATIC HYPOTENSION Status: Acute Current Visit: Yes (5) Atypical chest pain SNOMED Code(s): 785011594 ICD Code: R07.89 - OTHER CHEST PAIN Status: Acute Current Visit: No (6) Gastroesophageal reflux disease SNOMED Code(s): 966869851 ICD Code: K21.9 - GASTRO-ESOPHAGEAL REFLUX DISEASE WITHOUT ESOPHAGITIS Status: Acute Current Visit: No Qualifiers: Esophagitis presence: esophagitis presence not specified Qualified Code(s) : K21.9 - Gastro-esophageal reflux disease without esophagitis (7) Restless leg syndrome SNOMED Code(s): 21678359 ICD Code: G25.81 - RESTLESS LEGS SYNDROME Status: Acute Current Visit: No Problem List Initiated/Reviewed/Updated: Yes Assessment/Plan Comment:: Impression: CP resolved, atypical Restless Leg Syndrome Orthostatic, moderate-severely symptomatic CVA prevention with plavix Anemia Query Anxiety Query Depression Chronic Hypothyroidism History of retocele; cystocele History of uterine prolapse Plan: Ischemic work up Replace electrolytes Check for occult blood IVF-->100 cc/hr after 500cc bolus Home meds Daily Labs DVT/GI prophylaxis
[2018-01-05] MEDS ORDERED: traMADol 50 MG Tab PO PRN (17:46)
[2018-01-05] MEDS ORDERED: Pramipexole 0.5 MG Tab PO ONE ×2 (18:01→23:45)
[2018-01-05] MEDS ORDERED: Gabapentin 300 MG Cap PO ONE ×2 (18:02→23:21)
[2018-01-05] MEDS: LORazepam 2 MG/ML SDV IVPUSH PRN (18:56)
[2018-01-05] MEDS ORDERED: Sodium Chloride 0.9% 1,000 ML IV SCH (19:15)
[2018-01-05] MEDS ORDERED: Temazepam 7.5 MG Cap PO PRN (19:37)
[2018-01-05] MEDS ORDERED: Gabapentin 300 MG Cap PO SCH (21:00)
[2018-01-05] MEDS ORDERED: Pramipexole 0.25 MG Tab PO SCH (21:00)
[2018-01-05] MEDS ORDERED: Pramipexole 0.5 MG Tab PO SCH (21:00)
[2018-01-05] MEDS ORDERED: Pramipexole 0.25 MG Tab PO ONE (23:45)
[2018-01-06] MEDS: LORazepam 2 MG/ML SDV IVPUSH PRN (03:18)
[2018-01-06] MEDS: Levothyroxine 100 MCG Tab PO SCH (05:39)
[2018-01-06] MEDS ORDERED: Sodium Chloride 0.9% 250 ML IV SCH (08:00)
[2018-01-06] MEDS ORDERED: Non-Formulary Medication 1 Each (L.Acidoph,Paracasei, B.Lactis [Probiotic] 1 EACH) PO SCH (09:00)
[2018-01-06] MEDS: Clopidogrel 75 MG Tab PO SCH (09:23)
[2018-01-06] MEDS: Citalopram 20 MG Tab PO SCH (09:23)
[2018-01-06] MEDS: Enoxaparin 40 MG/0.4 ML Syringe SUBCUT SCH (09:24)
[2018-01-06] MEDS: Saccharomyces Boulardii (Probiotic) 250 MG Cap PO SCH (09:24)
[2018-01-06] MEDS ORDERED: busPIRone 5 MG Tab PO SCH (10:15)
[2018-01-06] MEDS: rOPINIRole 1 MG Tab PO SCH ×2 (10:38→20:31)
[2018-01-06] MEDS ORDERED: Haloperidol Lactate 5 MG/ML SDV IVPUSH ONE ×2 (12:06→12:46)
[2018-01-06] MEDS: Furosemide 20 MG/2 ML VIAL IVPUSH PRN ×2 (12:29→14:59)
[2018-01-06] MEDS ORDERED: Morphine 2 MG/ML Syringe ONE (13:35)
[2018-01-06] MEDS ORDERED: Morphine 2 MG/ML Syringe IVPUSH ONE (13:38)
[2018-01-06] MEDS ORDERED: LORazepam 2 MG/ML SDV IVPUSH ONE ×2 (13:53→15:17)
[2018-01-06] MEDS ORDERED: Gabapentin 300 MG Cap PO SCH (15:00)
--- NOTE | 2018-01-06 15:14 | PCM.PN ---
- General Info Date of Service: 01/06/18 Functional Status: Reports: Urinating - Review of Systems General: Reports: No Symptoms HEENT: Reports: No Symptoms Pulmonary: Reports: No Symptoms Cardiovascular: Reports: No Symptoms Gastrointestinal: Reports: No Symptoms Genitourinary: Reports: No Symptoms Musculoskeletal: Reports: No Symptoms Skin: Reports: No Symptoms Neurological: Reports: No Symptoms Psychiatric: Reports: Agitation - Patient Data Vitals - Most Recent: Last Vital Signs Temp 36.8 C 01/06/18 15:13 Pulse 90 01/06/18 15:13 Resp 22 H 01/06/18 15:13 BP 134/96 H 01/06/18 15:13 Pulse Ox 97 01/06/18 15:13 Weight - Most Recent: 54.023 kg I&O - Last 24 Hours: Intake & Output 01/06/18 01/06/18 01/06/18 06:59 14:59 22:59 Intake Total 1783 838 0 Balance 1783 838 0 Lab Results Last 24 Hours: Laboratory Results - last 24 hr 01/05/18 01/06/18 01/06/18 Range/Units 20:31 05:50 05:50 WBC 6.20 (3.98-10.04) K/mm3 RBC 2.27 L (3.98-5.22) M/mm3 Hgb 6.5 L* (11.2-15.7) gm/L Hct 20.3 L (34.1-44.9) % MCV 89.4 (79.4-94.8) fl MCH 28.6 (25.6-32.2) pg MCHC 32.0 L (32.2-35.5) g/dl RDW Std Deviation 41.9 (36.4-46.3) fL Plt Count 175 L (182-369) K/mm3 MPV 10.6 (9.4-12.3) fl Neut % (Auto) 75.0 H (34.0-71.1) % Lymph % (Auto) 17.9 L (19.3-51.7) % [place] % (Auto) 6.1 (4.7-12.5) % Eos % (Auto) 0.5 L (0.7-5.8) Baso % (Auto) 0.5 (0.1-1.2) % Neut # (Auto) 4.65 (1.56-6.13) K/mm3 Lymph # (Auto) 1.11 L (1.18-3.74) K/mm3 [place] # (Auto) 0.38 H (0.24-0.36) K/mm3 Eos # (Auto) 0.03 L (0.04-0.36) K/mm3 Baso # (Auto) 0.03 (0.01-0.08) K/mm3 Manual Slide Review Abnormal smear Sodium 143 (136-145) mEq/L Potassium 3.8 (3.5-5.1) mEq/L Chloride 112 H (98-107) mEq/L Carbon Dioxide 20 L (21-32) mEq/L Anion Gap 14.8 (5-15) BUN 43 H (7-18) mg/dL Creatinine 0.6 (0.55-1.02) mg/dL Est Cr Clr Drug Dosing 57.40 mL/min Estimated GFR (MDRD) > 60 (>60) mL/min BUN/Creatinine Ratio 71.7 H (14-18) Glucose 109 (83-115) mg/dL Lactic Acid (0.4-2.0) mmol/L Calcium 7.7 L (8.5-10.1) mg/dL Iron (50-170) ug/dL TIBC (100-400) ug/dL % Saturation (20-55) % Transferrin (202-364) mg/dL Troponin I < 0.017 0.063 H* (0.00-0.056) ng/mL C-Reactive Protein < 0.2 (<1.0) mg/dL Blood Type Gel Antibody Screen Crossmatch 01/06/18 01/06/18 01/06/18 Range/Units 05:50 05:50 05:50 WBC (3.98-10.04) K/mm3 RBC (3.98-5.22) M/mm3 Hgb (11.2-15.7) gm/L Hct (34.1-44.9) % MCV (79.4-94.8) fl MCH (25.6-32.2) pg MCHC (32.2-35.5) g/dl RDW Std Deviation (36.4-46.3) fL Plt Count (182-369) K/mm3 MPV (9.4-12.3) fl Neut % (Auto) (34.0-71.1) % Lymph % (Auto) (19.3-51.7) % [place] % (Auto) (4.7-12.5) % Eos % (Auto) (0.7-5.8) Baso % (Auto) (0.1-1.2) % Neut # (Auto) (1.56-6.13) K/mm3 Lymph # (Auto) (1.18-3.74) K/mm3 [place] # (Auto) (0.24-0.36) K/mm3 Eos # (Auto) (0.04-0.36) K/mm3 Baso # (Auto) (0.01-0.08) K/mm3 Manual Slide Review Sodium (136-145) mEq/L Potassium (3.5-5.1) mEq/L Chloride (98-107) mEq/L Carbon Dioxide (21-32) mEq/L Anion Gap (5-15) BUN (7-18) mg/dL Creatinine (0.55-1.02) mg/dL Est Cr Clr Drug Dosing mL/min Estimated GFR (MDRD) (>60) mL/min BUN/Creatinine Ratio (14-18) Glucose (83-115) mg/dL Lactic Acid 1.5 (0.4-2.0) mmol/L Calcium (8.5-10.1) mg/dL Iron 172 H (50-170) ug/dL TIBC 151 (100-400) ug/dL % Saturation 114 H (20-55) % Transferrin 121 L (202-364) mg/dL Troponin I (0.00-0.056) ng/mL C-Reactive Protein (<1.0) mg/dL Blood Type O POSITIVE Gel Antibody Screen Negative Crossmatch See Detail Jeffry Results Last 24 Hours: Microbiology 01/06/18 08:22 Stool Occult Blood (JEFFRY) - Final Stool / Feces POSITIVE OCCULT BLOOD Med Orders - Current: Current Medications Buspirone HCl (Buspar) 7.5 mg PO BID [facility] Last Admin: 01/06/18 10:38 Dose: 7.5 mg Citalopram Hydrobromide (Celexa) 40 mg PO DAILY [facility] Last Admin: 01/06/18 09:23 Dose: 40 mg Clopidogrel Bisulfate (Plavix) 75 mg PO DAILY [facility] Last Admin: 01/06/18 09:23 Dose: 75 mg Enoxaparin Sodium (Lovenox) 40 mg SUBCUT DAILY [facility] Last Admin: 01/06/18 09:24 Dose: 40 mg Gabapentin (Neurontin) 300 mg PO TID [facility] Last Admin: 01/06/18 14:59 Dose: 300 mg Sodium Chloride (Normal Saline) 250 mls @ 25 mls/hr IV ASDIRECTED [facility] Last Admin: 01/06/18 09:25 Dose: 25 mls/hr Levothyroxine Sodium (Synthroid) 100 mcg PO ACBREAKFAST [facility] Last Admin: 01/06/18 05:39 Dose: 100 mcg Lorazepam (Ativan) 0.5 mg IVPUSH Q8H PRN PRN Reason: Anxiety Last Admin: 01/06/18 03:18 Dose: 0.5 mg (Glucosamine/Chondro Smith A [Cosamin Ds] 1 Tab)Own Med 1 tab PO DAILY [facility] Pramipexole Dihydrochloride (Mirapex) 0.5 mg PO BEDTIME [facility] Last Admin: 01/05/18 21:36 Dose: 0.5 mg Ropinirole HCl (Requip) 1 mg PO BID [facility] Last Admin: 01/06/18 10:38 Dose: 1 mg Saccharomyces Boulardii (Florastor) 500 mg PO DAILY [facility] Last Admin: 01/06/18 09:24 Dose: 500 mg Temazepam (Restoril) 7.5 mg PO BEDTIME PRN PRN Reason: Insomnia Last Admin: 01/05/18 21:36 Dose: 7.5 mg Tramadol HCl (Ultram) 50 mg PO BID PRN PRN Reason: Pain Last Admin: 01/05/18 18:12 Dose: 50 mg Discontinued Medications Furosemide (Lasix) 20 mg IVPUSH ASDIRECTED PRN PRN Reason: Bleeding Last Admin: 01/06/18 14:59 Dose: 20 mg Gabapentin (Neurontin) 300 mg PO BEDTIME [facility] Last Admin: 01/05/18 20:06 Dose: Not Given Gabapentin (Neurontin) 300 mg PO ONETIME ONE Stop: 01/05/18 18:03 Last Admin: 01/05/18 18:08 Dose: 300 mg Gabapentin (Neurontin) 300 mg PO ONETIME ONE Stop: 01/05/18 23:22 Last Admin: 01/05/18 23:38 Dose: 300 mg Haloperidol Lactate (Haldol) 1 mg IVPUSH ONETIME ONE Stop: 01/06/18 12:07 Last Admin: 01/06/18 12:13 Dose: 1 mg Haloperidol Lactate (Haldol) 2 mg IVPUSH ONETIME ONE Stop: 01/06/18 12:47 Last Admin: 01/06/18 12:52 Dose: 2 mg Sodium Chloride (Normal Saline) 500 mls @ 999 mls/hr IV .BOLUS ONE Stop: 01/05/18 13:59 Last Admin: 01/05/18 13:39 Dose: 999 mls/hr Sodium Chloride (Normal Saline) 500 mls @ 999 mls/hr IV .BOLUS ONE Stop: 01/05/18 16:49 Last Admin: 01/05/18 16:30 Dose: 999 mls/hr Sodium Chloride (Normal Saline) 500 mls @ 500 mls/hr IV ONETIME ONE Stop: 01/05/18 19:14 Last Admin: 01/05/18 18:56 Dose: 500 mls/hr Sodium Chloride (Normal Saline) 1,000 mls @ 100 mls/hr IV ASDIRECTED NANCY Last Admin: 01/05/18 21:47 Dose: 100 mls/hr Lorazepam (Ativan) 0.25 mg IVPUSH ONETIME ONE Stop: 01/05/18 16:55 Last Admin: 01/05/18 17:58 Dose: Not Given Lorazepam (Ativan) 0.5 mg IVPUSH ONETIME ONE Stop: 01/05/18 23:20 Last Admin: 01/05/18 23:38 Dose: 0.5 mg Lorazepam (Ativan) 1 mg IVPUSH ONETIME ONE Stop: 01/06/18 13:54 Last Admin: 01/06/18 13:59 Dose: 1 mg Morphine Sulfate (Morphine) 2 mg IVPUSH ONETIME ONE Stop: 01/06/18 13:39 Last Admin: 01/06/18 13:42 Dose: 2 mg Morphine Sulfate (Morphine) Confirm Administered Dose 2 mg .ROUTE .STK-MED ONE Stop: 01/06/18 13:36 Last Admin: 01/06/18 13:44 Dose: Not Given Non-Formulary Medication (L.Acidoph,Paracasei, B.Lactis [Probiotic]) 1 each PO DAILY NANCY Pramipexole Dihydrochloride (Mirapex) 0.5 mg PO BEDTIME NANCY Last Admin: 01/06/18 01:14 Dose: Not Given Pramipexole Dihydrochloride (Mirapex) 0.5 mg PO BEDTIME ONE Stop: 01/05/18 18:02 Last Admin: 01/05/18 19:08 Dose: Not Given Pramipexole Dihydrochloride (Mirapex) 0.5 mg PO BEDTIME NANCY Pramipexole Dihydrochloride (Mirapex) 0.5 mg PO ONETIME ONE Stop: 01/06/18 23:22 Pramipexole Dihydrochloride (Mirapex) 0.5 mg PO ONETIME ONE Stop: 01/05/18 23:46 Pramipexole Dihydrochloride (Mirapex) 0.5 mg PO ONETIME ONE Stop: 01/05/18 23:46 Last Admin: 01/05/18 23:44 Dose: 0.5 mg - Exam Quality Assessment: Supplemental Oxygen, DVT Prophylaxis General: Alert, Oriented, Mild Distress HEENT: Pupils Equal, Pupils Reactive, EOMI Neck: Trachea Midline Lungs: Normal Respiratory Effort Cardiovascular: Regular Rate, Regular Rhythm GI/Abdominal Exam: Normal Bowel Sounds, Soft, Non-Tender, No Organomegaly, No Distention (Female) Exam: Deferred Back Exam: Normal Inspection Extremities: Normal Inspection Skin: Warm Neurological: No New Focal Deficit Psy/Mental Status: Anxious, Agitated - Problem List Review Problem List Initiated/Reviewed/Updated: Yes - My Orders Last 24 Hours: My Active Orders 01/05/18 17:46 traMADol [Ultram] 50 mg PO BID PRN 01/05/18 18:06 Consult to Occupational Therapy [OT Evaluation and Treatment] [CONS] Routine Consult to Physical Therapy [PT Evaluation and Treatment] [CONS] Routine 01/05/18 18:07 Consult to Case Management [CONS] Routine 01/05/18 18:41 LORazepam [Ativan] 0.5 mg IVPUSH Q8H PRN 01/05/18 19:37 Temazepam [Restoril] 7.5 mg PO BEDTIME PRN 01/05/18 19:43 Resuscitation Status Routine 01/05/18 21:00 Pramipexole [Mirapex] 0.5 mg PO BEDTIME 01/06/18 06:00 Levothyroxine [Synthroid] 100 mcg PO ACBREAKFAST 01/06/18 07:40 Transfuse PRBC [Transfuse Red Blood Cells] [COMM] Urgent 01/06/18 08:00 Sodium Chloride 0.9% [Normal Saline] 250 ml IV ASDIRECTED 01/06/18 09:00 Citalopram [Celexa] 40 mg PO DAILY Clopidogrel [Plavix] 75 mg PO DAILY Enoxaparin [Lovenox] 40 mg SUBCUT DAILY Glucosamine/Chondro Smith A [Cosamin DS] 1 tab PO DAILY 01/06/18 09:12 Consult to Physician [CONS] Routine 01/06/18 09:13 Notify Provider Consults [RC] ASDIRECTED 01/06/18 10:15 busPIRone [Buspar] 7.5 mg PO BID 01/06/18 10:30 rOPINIRole [Requip] 1 mg PO BID 01/06/18 12:01 Consult to Salesperson Household Appliances [CONS] Routine 01/06/18 13:30 One To One Therapy [BH] Routine 01/06/18 13:52 Pulse Oximetry Continuous Monitoring [OM.PC] Routine 01/06/18 13:54 Oxygen Therapy [RC] ASDIRECTED 01/06/18 15:00 Gabapentin [Neurontin] 300 mg PO TID 01/06/18 Lunch Clear Liquid Diet [DIET] 01/07/18 05:00 BMP [BASIC METABOLIC PANEL,BMP] [CHEM] DAILY CBC WITH AUTO DIFF [HEME] DAILY CRP [C-REACTIVE PROTEIN] [CHEM] DAILY LACTIC ACID [CHEM] DAILY 01/08/18 05:00 BMP [BASIC METABOLIC PANEL,BMP] [CHEM] DAILY CBC WITH AUTO DIFF [HEME] DAILY CRP [C-REACTIVE PROTEIN] [CHEM] DAILY LACTIC ACID [CHEM] DAILY 01/09/18 05:00 BMP [BASIC METABOLIC PANEL,BMP] [CHEM] DAILY CBC WITH AUTO DIFF [HEME] DAILY CRP [C-REACTIVE PROTEIN] [CHEM] DAILY LACTIC ACID [CHEM] DAILY - Plan Plan:: Impression: CP resolved, atypical-->resolved, minimal change in TnI Restless Leg Syndrome--->very difficult to manage. Spent 35 minutes treating patient acutely with multiple meds for extreme restlessness/RLS. Adjust RLS meds: increase Neurontin; add Klonopin; increase Tramadol Orthostatic, moderate-severely symptomatic CVA prevention with plavix Anemia---Hgb dropped, will T/C for 3 units with Lasix Stool neg-->now positive Query Anxiety Query Depression Chronic Hypothyroidism History of retocele; cystocele History of uterine prolapse Plan: Ischemic work up Replace electrolytes T/C 3 units with Lasix General Surg consult, Dr jimenez has been notified. IVF-->100 cc/hr after 500cc bolus Home meds Daily Labs DVT/GI prophylaxis
[2018-01-06] MEDS ORDERED: Pramipexole 0.5 MG Tab PO SCH (15:20)
[2018-01-06] MEDS: Gabapentin 600 MG Tab PO SCH (20:30)
[2018-01-06] MEDS: Pramipexole 0.25 MG Tab PO SCH (20:30)
[2018-01-06] MEDS ORDERED: Pramipexole 0.25 MG Tab PO SCH (21:00)
[2018-01-06] MEDS: traMADol 50 MG Tab PO SCH (21:22)
[2018-01-06] MEDS: ClonazePAM 0.5 MG Tab PO SCH (21:31)
[2018-01-06] MEDS ORDERED: Pramipexole 0.5 MG Tab PO ONE (23:21)
[2018-01-07] MEDS: Levothyroxine 100 MCG Tab PO SCH (07:28)
--- NOTE | 2018-01-07 08:16 | PCM.PN ---
- General Info Date of Service: 01/07/18 Admission Dx/Problem (Free Text): Admission Diagnosis/Problem Admission Diagnosis/Problem Hypotension Subjective Update: Follow up Functional Status: Reports: Pain Controlled, Tolerating Diet, Urinating - Review of Systems General: Denies: Fever, Weakness, Fatigue, Malaise, Chills HEENT: Reports: No Symptoms Pulmonary: Denies: Shortness of Breath Cardiovascular: Denies: Chest Pain, Dyspnea on Exertion, Edema Gastrointestinal: Reports: Flatus. Denies: Abdominal Pain, Constipation, Diarrhea, Nausea, Vomiting Genitourinary: Denies: Dysuria, Frequency, Burning Musculoskeletal: Reports: No Symptoms Skin: Denies: Cyanosis, Mottled, Pallor, Diaphoresis, Pruritis, Rash Neurological: Denies: No Symptoms, Confusion, Difficulty Walking, Weakness, Gait Disturbance Psychiatric: Denies: Depression, Agitation, Hallucinations Systems Review Comment:: No overnight or acute issues. She slept through the night w/o issues. She feels pretty good. Her complaints no RLS. She is hungry however. No reports of rectal bleed. Her Hgb this am is 9.5. Her K level is slightly low at 3.4. - Patient Data Vitals - Most Recent: Last Vital Signs Temp 36.5 C 01/07/18 04:50 Pulse 65 01/07/18 04:50 Resp 14 01/07/18 04:50 BP 117/66 01/07/18 04:50 Pulse Ox 98 01/07/18 04:50 Weight - Most Recent: 50.576 kg I&O - Last 24 Hours: Intake & Output 01/06/18 01/07/18 01/07/18 22:59 06:59 14:59 Intake Total 1898 350 Output Total 2500 1550 Balance -602 -1200 Lab Results Last 24 Hours: Laboratory Results - last 24 hr 01/06/18 01/06/18 01/06/18 Range/Units 05:50 05:50 19:18 WBC (3.98-10.04) K/mm3 RBC (3.98-5.22) M/mm3 Hgb 11.1 L (11.2-15.7) gm/L Hct (34.1-44.9) % MCV (79.4-94.8) fl MCH (25.6-32.2) pg MCHC (32.2-35.5) g/dl RDW Std Deviation (36.4-46.3) fL Plt Count (182-369) K/mm3 MPV (9.4-12.3) fl Neut % (Auto) (34.0-71.1) % Lymph % (Auto) (19.3-51.7) % [place] % (Auto) (4.7-12.5) % Eos % (Auto) (0.7-5.8) Baso % (Auto) (0.1-1.2) % Neut # (Auto) (1.56-6.13) K/mm3 Lymph # (Auto) (1.18-3.74) K/mm3 [place] # (Auto) (0.24-0.36) K/mm3 Eos # (Auto) (0.04-0.36) K/mm3 Baso # (Auto) (0.01-0.08) K/mm3 Sodium (136-145) mEq/L Potassium (3.5-5.1) mEq/L Chloride (98-107) mEq/L Carbon Dioxide (21-32) mEq/L Anion Gap (5-15) BUN (7-18) mg/dL Creatinine (0.55-1.02) mg/dL Est Cr Clr Drug Dosing mL/min Estimated GFR (MDRD) (>60) mL/min BUN/Creatinine Ratio (14-18) Glucose (83-115) mg/dL Lactic Acid (0.4-2.0) mmol/L Calcium (8.5-10.1) mg/dL Iron 172 H (50-170) ug/dL TIBC 151 (100-400) ug/dL % Saturation 114 H (20-55) % Transferrin 121 L (202-364) mg/dL C-Reactive Protein (<1.0) mg/dL Blood Type O POSITIVE Gel Antibody Screen Negative Crossmatch See Detail 01/07/18 01/07/18 01/07/18 Range/Units 05:35 05:35 05:35 WBC 5.58 (3.98-10.04) K/mm3 RBC 3.31 L (3.98-5.22) M/mm3 Hgb 9.5 L (11.2-15.7) gm/L Hct 28.3 L (34.1-44.9) % MCV 85.5 (79.4-94.8) fl MCH 28.7 (25.6-32.2) pg MCHC 33.6 (32.2-35.5) g/dl RDW Std Deviation 45.1 (36.4-46.3) fL Plt Count 127 L (182-369) K/mm3 MPV 10.6 (9.4-12.3) fl Neut % (Auto) 64.7 (34.0-71.1) % Lymph % (Auto) 21.1 (19.3-51.7) % [place] % (Auto) 12.4 (4.7-12.5) % Eos % (Auto) 1.1 (0.7-5.8) Baso % (Auto) 0.5 (0.1-1.2) % Neut # (Auto) 3.61 (1.56-6.13) K/mm3 Lymph # (Auto) 1.18 (1.18-3.74) K/mm3 [place] # (Auto) 0.69 H (0.24-0.36) K/mm3 Eos # (Auto) 0.06 (0.04-0.36) K/mm3 Baso # (Auto) 0.03 (0.01-0.08) K/mm3 Sodium 145 (136-145) mEq/L Potassium 3.4 L (3.5-5.1) mEq/L Chloride 112 H (98-107) mEq/L Carbon Dioxide 25 (21-32) mEq/L Anion Gap 11.4 (5-15) BUN 53 H (7-18) mg/dL Creatinine 0.6 (0.55-1.02) mg/dL Est Cr Clr Drug Dosing 53.74 mL/min Estimated GFR (MDRD) > 60 (>60) mL/min BUN/Creatinine Ratio 88.3 H (14-18) Glucose 116 H (83-115) mg/dL Lactic Acid 0.8 (0.4-2.0) mmol/L Calcium 8.1 L (8.5-10.1) mg/dL Iron (50-170) ug/dL TIBC (100-400) ug/dL % Saturation (20-55) % Transferrin (202-364) mg/dL C-Reactive Protein < 0.2 (<1.0) mg/dL Blood Type Gel Antibody Screen Crossmatch Jeffry Results Last 24 Hours: Microbiology 01/06/18 08:22 Stool Occult Blood (JEFFRY) - Final Stool / Feces POSITIVE OCCULT BLOOD Med Orders - Current: Current Medications Citalopram Hydrobromide (Celexa) 40 mg PO DAILY [facility] Last Admin: 01/06/18 09:23 Dose: 40 mg Clonazepam (Klonopin) 0.5 mg PO BEDTIME [facility] Last Admin: 01/06/18 21:31 Dose: 0.5 mg Clopidogrel Bisulfate (Plavix) 75 mg PO DAILY [facility] Last Admin: 01/06/18 09:23 Dose: 75 mg Enoxaparin Sodium (Lovenox) 40 mg SUBCUT DAILY [facility] Last Admin: 01/06/18 09:24 Dose: 40 mg Gabapentin (Neurontin) 300 mg PO BID@0900,1600 [facility] Gabapentin (Neurontin) 600 mg PO BEDTIME [facility] Last Admin: 01/06/18 20:30 Dose: 600 mg Sodium Chloride (Normal Saline) 250 mls @ 25 mls/hr IV ASDIRECTED [facility] Last Admin: 01/06/18 09:25 Dose: 25 mls/hr Levothyroxine Sodium (Synthroid) 100 mcg PO ACBREAKFAST [facility] Last Admin: 01/07/18 07:28 Dose: 100 mcg Lorazepam (Ativan) 0.5 mg IVPUSH Q8H PRN PRN Reason: Anxiety Last Admin: 01/06/18 03:18 Dose: 0.5 mg (Glucosamine/Chondro Smith A [Cosamin Ds] 1 Tab)Own Med 1 tab PO DAILY [facility] Last Admin: 01/06/18 16:02 Dose: Not Given Pramipexole Dihydrochloride (Mirapex) 0.5 mg PO BEDTIME [facility] Last Admin: 01/06/18 20:30 Dose: 0.5 mg Ropinirole HCl (Requip) 1 mg PO BID [facility] Last Admin: 01/06/18 20:31 Dose: 1 mg Saccharomyces Boulardii (Florastor) 500 mg PO DAILY [facility] Last Admin: 01/06/18 09:24 Dose: 500 mg Temazepam (Restoril) 7.5 mg PO BEDTIME PRN PRN Reason: Insomnia Last Admin: 01/05/18 21:36 Dose: 7.5 mg Tramadol HCl (Ultram) 100 mg PO TID [facility] Last Admin: 01/06/18 21:22 Dose: 100 mg Discontinued Medications Buspirone HCl (Buspar) 7.5 mg PO BID [facility] Last Admin: 01/06/18 10:38 Dose: 7.5 mg Furosemide (Lasix) 20 mg IVPUSH ASDIRECTED PRN PRN Reason: Bleeding Last Admin: 01/06/18 14:59 Dose: 20 mg Gabapentin (Neurontin) 300 mg PO BEDTIME [facility] Last Admin: 01/05/18 20:06 Dose: Not Given Gabapentin (Neurontin) 300 mg PO ONETIME ONE Stop: 01/05/18 18:03 Last Admin: 01/05/18 18:08 Dose: 300 mg Gabapentin (Neurontin) 300 mg PO ONETIME ONE Stop: 01/05/18 23:22 Last Admin: 01/05/18 23:38 Dose: 300 mg Gabapentin (Neurontin) 300 mg PO TID [facility] Last Admin: 01/06/18 14:59 Dose: 300 mg Haloperidol Lactate (Haldol) 1 mg IVPUSH ONETIME ONE Stop: 01/06/18 12:07 Last Admin: 01/06/18 12:13 Dose: 1 mg Haloperidol Lactate (Haldol) 2 mg IVPUSH ONETIME ONE Stop: 01/06/18 12:47 Last Admin: 01/06/18 12:52 Dose: 2 mg Sodium Chloride (Normal Saline) 500 mls @ 999 mls/hr IV .BOLUS ONE Stop: 01/05/18 13:59 Last Admin: 01/05/18 13:39 Dose: 999 mls/hr Sodium Chloride (Normal Saline) 500 mls @ 999 mls/hr IV .BOLUS ONE Stop: 01/05/18 16:49 Last Admin: 01/05/18 16:30 Dose: 999 mls/hr Sodium Chloride (Normal Saline) 500 mls @ 500 mls/hr IV ONETIME ONE Stop: 01/05/18 19:14 Last Admin: 01/05/18 18:56 Dose: 500 mls/hr Sodium Chloride (Normal Saline) 1,000 mls @ 100 mls/hr IV ASDIRECTED [facility] Last Admin: 01/05/18 21:47 Dose: 100 mls/hr Lorazepam (Ativan) 0.25 mg IVPUSH ONETIME ONE Stop: 01/05/18 16:55 Last Admin: 01/05/18 17:58 Dose: Not Given Lorazepam (Ativan) 0.5 mg IVPUSH ONETIME ONE Stop: 01/05/18 23:20 Last Admin: 01/05/18 23:38 Dose: 0.5 mg Lorazepam (Ativan) 1 mg IVPUSH ONETIME ONE Stop: 01/06/18 13:54 Last Admin: 01/06/18 13:59 Dose: 1 mg Lorazepam (Ativan) 1 mg IVPUSH ONETIME ONE Stop: 01/06/18 15:18 Last Admin: 01/06/18 15:40 Dose: 1 mg Morphine Sulfate (Morphine) 2 mg IVPUSH ONETIME ONE Stop: 01/06/18 13:39 Last Admin: 01/06/18 13:42 Dose: 2 mg Morphine Sulfate (Morphine) Confirm Administered Dose 2 mg .ROUTE .STK-MED ONE Stop: 01/06/18 13:36 Last Admin: 01/06/18 13:44 Dose: Not Given Non-Formulary Medication (L.Acidoph,Paracasei, B.Lactis [Probiotic]) 1 each PO DAILY [facility] Pramipexole Dihydrochloride (Mirapex) 0.5 mg PO BEDTIME [facility] Last Admin: 01/06/18 01:14 Dose: Not Given Pramipexole Dihydrochloride (Mirapex) 0.5 mg PO BEDTIME ONE Stop: 01/05/18 18:02 Last Admin: 01/05/18 19:08 Dose: Not Given Pramipexole Dihydrochloride (Mirapex) 0.5 mg PO BEDTIME [facility] Pramipexole Dihydrochloride (Mirapex) 0.5 mg PO BEDTIME [facility] Last Admin: 01/05/18 21:36 Dose: 0.5 mg Pramipexole Dihydrochloride (Mirapex) 0.5 mg PO ONETIME ONE Stop: 01/06/18 23:22 Pramipexole Dihydrochloride (Mirapex) 0.5 mg PO ONETIME ONE Stop: 01/05/18 23:46 Pramipexole Dihydrochloride (Mirapex) 0.5 mg PO ONETIME ONE Stop: 01/05/18 23:46 Last Admin: 01/05/18 23:44 Dose: 0.5 mg Pramipexole Dihydrochloride (Mirapex) 0.5 mg PO BEDTIME [facility] Tramadol HCl (Ultram) 50 mg PO BID PRN PRN Reason: Pain Last Admin: 01/05/18 18:12 Dose: 50 mg - Exam General: Alert, Oriented, Cooperative, No Acute Distress HEENT: Pupils Equal, Pupils Reactive, EOMI, Mucous Membr. Moist/[place] Neck: Supple, Trachea Midline, No JVD Lungs: Clear to Auscultation, Normal Respiratory Effort Cardiovascular: Regular Rate, Regular Rhythm GI/Abdominal Exam: Normal Bowel Sounds, Soft, Non-Tender, No Organomegaly, No Distention, No Abnormal Bruit, No Mass (Female) Exam: Deferred Back Exam: Normal Inspection, Decreased Range of Motion Extremities: Normal Inspection, Normal Range of Motion, Non-Tender, No Pedal Edema, Normal Capillary Refill Peripheral Pulses: 2+: Dorsalis Pedis (L), Dorsalis Pedis (R) Skin: Warm, Dry, Intact Neurological: No New Focal Deficit Psy/Mental Status: Alert, Normal Affect, Normal Mood - Problem List Review Problem List Initiated/Reviewed/Updated: Yes - Plan Plan:: Impression: Acute: Anemia - Hx/o GI Bleed - Risk Factors; Diverticulosis and Chronic Constipation - Hgb dropped to 6.5 - She is now at 9.5 S/p 3 units of PRBC transfusion - Heme-occult positive - Dr. Harvey consulted Restless Leg Syndrome, Improved - Very difficult to manage - Spent 35 minutes treating patient acutely with multiple meds for extreme restlessness/RLS - Adjust RLS meds: increased Neurontin and Tramadol; Added Klonopin Resolved: CP Resolved, atypical-->resolved, minimal change in TnI Orthostatic, moderate-severely symptomatic Chronic: Impaired Vision/Hearing HLD Hypothyroidism Constipation Diverticulosis Urinary Incontinence OA/DJD Osteoporosis Migraines MORSE Anxiety History of Rectocele/Cystocele History of Uterine Prolapse Hx/o CVA on Statin and Plavix Hx/o Small Bowel Resection Plan: She is clinically stable Continue current treatment Ischemic work up: troponin x3 all negative Continue clear liquid diet; npo midnight Endoscopy in AM Dr. Harvey following Routine AM Labs DVT/GI prophylaxis Updated daughter and at bed side. She will be scheduled for endoscopy in AM.
[2018-01-07] MEDS: Saccharomyces Boulardii (Probiotic) 250 MG Cap PO SCH (09:36)
[2018-01-07] MEDS: Enoxaparin 40 MG/0.4 ML Syringe SUBCUT SCH (09:37)
[2018-01-07] MEDS: Clopidogrel 75 MG Tab PO SCH (09:37)
[2018-01-07] MEDS: rOPINIRole 1 MG Tab PO SCH ×2 (09:37→20:45)
[2018-01-07] MEDS: traMADol 50 MG Tab PO SCH ×3 (09:38→20:44)
[2018-01-07] MEDS: Gabapentin 300 MG Cap PO SCH ×2 (09:38→15:23)
[2018-01-07] MEDS ORDERED: hydrALAZINE 20 MG/ML SDV IVPUSH PRN (09:55)
[2018-01-07] MEDS ORDERED: Metoprolol Tartrate 5 MG/5 ML SDV IVPUSH PRN (09:55)
[2018-01-07] MEDS ORDERED: Potassium Chloride 20 MEQ Tab.ER PO ONE (10:30)
--- NOTE | 2018-01-07 15:07 | PCM.CONSN ---
- General Info Date of Service: 01/07/18 - Patient Data Vitals - Most Recent: Last Vital Signs Temp 98.1 F 01/07/18 11:09 Pulse 75 01/07/18 11:09 Resp 19 01/07/18 11:09 BP 123/67 01/07/18 11:09 Pulse Ox 95 01/07/18 11:09 Weight - Most Recent: 50.576 kg I&O - Last 24 Hours: Intake & Output 01/06/18 01/07/18 01/07/18 23:59 07:59 15:59 Intake Total 1898 350 680 Output Total 2500 1550 Balance -602 -1200 680 Lab Results Last 24 Hours: Laboratory Results - last 24 hr 01/06/18 01/06/18 01/07/18 Range/Units 05:50 19:18 05:35 WBC 5.58 (3.98-10.04) K/mm3 RBC 3.31 L (3.98-5.22) M/mm3 Hgb 11.1 L 9.5 L (11.2-15.7) gm/L Hct 28.3 L (34.1-44.9) % MCV 85.5 (79.4-94.8) fl MCH 28.7 (25.6-32.2) pg MCHC 33.6 (32.2-35.5) g/dl RDW Std Deviation 45.1 (36.4-46.3) fL Plt Count 127 L (182-369) K/mm3 MPV 10.6 (9.4-12.3) fl Neut % (Auto) 64.7 (34.0-71.1) % Lymph % (Auto) 21.1 (19.3-51.7) % [place] % (Auto) 12.4 (4.7-12.5) % Eos % (Auto) 1.1 (0.7-5.8) Baso % (Auto) 0.5 (0.1-1.2) % Neut # (Auto) 3.61 (1.56-6.13) K/mm3 Lymph # (Auto) 1.18 (1.18-3.74) K/mm3 [place] # (Auto) 0.69 H (0.24-0.36) K/mm3 Eos # (Auto) 0.06 (0.04-0.36) K/mm3 Baso # (Auto) 0.03 (0.01-0.08) K/mm3 Sodium (136-145) mEq/L Potassium (3.5-5.1) mEq/L Chloride (98-107) mEq/L Carbon Dioxide (21-32) mEq/L Anion Gap (5-15) BUN (7-18) mg/dL Creatinine (0.55-1.02) mg/dL Est Cr Clr Drug Dosing mL/min Estimated GFR (MDRD) (>60) mL/min BUN/Creatinine Ratio (14-18) Glucose (83-115) mg/dL Lactic Acid (0.4-2.0) mmol/L Calcium (8.5-10.1) mg/dL C-Reactive Protein (<1.0) mg/dL Blood Type O POSITIVE Gel Antibody Screen Negative Crossmatch See Detail 01/07/18 01/07/18 Range/Units 05:35 05:35 WBC (3.98-10.04) K/mm3 RBC (3.98-5.22) M/mm3 Hgb (11.2-15.7) gm/L Hct (34.1-44.9) % MCV (79.4-94.8) fl MCH (25.6-32.2) pg MCHC (32.2-35.5) g/dl RDW Std Deviation (36.4-46.3) fL Plt Count (182-369) K/mm3 MPV (9.4-12.3) fl Neut % (Auto) (34.0-71.1) % Lymph % (Auto) (19.3-51.7) % [place] % (Auto) (4.7-12.5) % Eos % (Auto) (0.7-5.8) Baso % (Auto) (0.1-1.2) % Neut # (Auto) (1.56-6.13) K/mm3 Lymph # (Auto) (1.18-3.74) K/mm3 [place] # (Auto) (0.24-0.36) K/mm3 Eos # (Auto) (0.04-0.36) K/mm3 Baso # (Auto) (0.01-0.08) K/mm3 Sodium 145 (136-145) mEq/L Potassium 3.4 L (3.5-5.1) mEq/L Chloride 112 H (98-107) mEq/L Carbon Dioxide 25 (21-32) mEq/L Anion Gap 11.4 (5-15) BUN 53 H (7-18) mg/dL Creatinine 0.6 (0.55-1.02) mg/dL Est Cr Clr Drug Dosing 53.74 mL/min Estimated GFR (MDRD) > 60 (>60) mL/min BUN/Creatinine Ratio 88.3 H (14-18) Glucose 116 H (83-115) mg/dL Lactic Acid 0.8 (0.4-2.0) mmol/L Calcium 8.1 L (8.5-10.1) mg/dL C-Reactive Protein < 0.2 (<1.0) mg/dL Blood Type Gel Antibody Screen Crossmatch Jeffry Results Last 24 Hours: Microbiology 01/06/18 08:22 Stool Occult Blood (JEFFRY) - Final Stool / Feces POSITIVE OCCULT BLOOD Med Orders - Current: Current Medications Citalopram Hydrobromide (Celexa) [address] [facility] Last Admin: 01/06/18 09:23 Dose: 40 mg Clonazepam (Klonopin) 0.[address] [facility] Last Admin: 01/06/18 21:31 Dose: 0.5 mg Gabapentin (Neurontin) 300 mg PO BID@0900,1600 [facility] Last Admin: 01/07/18 09:38 Dose: 300 mg Gabapentin (Neurontin) [address] [facility] Last Admin: 01/06/18 20:30 Dose: 600 mg Hydralazine HCl (Apresoline) 10 mg IVPUSH Q4H PRN PRN Reason: Hypertension Sodium Chloride (Normal Saline) 250 mls @ 25 mls/hr IV ASDIRECTED [facility] Last Admin: 01/06/18 09:25 Dose: 25 mls/hr Levothyroxine Sodium (Synthroid) [address] [facility] Last Admin: 01/07/18 07:28 Dose: 100 mcg Lorazepam (Ativan) 0.5 mg IVPUSH Q8H PRN PRN Reason: Anxiety Last Admin: 01/06/18 03:18 Dose: 0.5 mg Magnesium Sulfate (Pharmacy To Dose - Magnesium Replacement) [address] [facility] Metoprolol Tartrate (Lopressor) 5 mg IVPUSH Q4H PRN PRN Reason: Tachycardia (Glucosamine/Chondro Smith A [Cosamin Ds] 1 Tab)Own Med [address] [facility] Last Admin: 01/07/18 12:31 Dose: Not Given Polyethylene Glycol/Electrolytes (Golytely) 4,000 ml PO ONETIME ONE Stop: 01/07/18 17:01 Potassium Chloride (Pharmacy To Dose - Potassium Replacement) [address] [facility] Pramipexole Dihydrochloride (Mirapex) 0.[address] [facility] Last Admin: 01/06/18 20:30 Dose: 0.5 mg Ropinirole HCl (Requip) [address] [facility] Last Admin: 01/07/18 09:37 Dose: 1 mg Saccharomyces Boulardii (Florastor) [address] [facility] Temazepam (Restoril) 7.5 mg PO BEDTIME PRN PRN Reason: Insomnia Last Admin: 01/05/18 21:36 Dose: 7.5 mg Tramadol HCl (Ultram) [address] [facility] Last Admin: 01/07/18 09:38 Dose: 100 mg Discontinued Medications Buspirone HCl (Buspar) 7.[address] [facility] Last Admin: 01/06/18 10:38 Dose: 7.5 mg Clopidogrel Bisulfate (Plavix) [address] [facility] Last Admin: 01/07/18 09:37 Dose: 75 mg Enoxaparin Sodium (Lovenox) [address] [facility] Last Admin: 01/07/18 09:37 Dose: 40 mg Furosemide (Lasix) 20 mg IVPUSH ASDIRECTED PRN PRN Reason: Bleeding Last Admin: 01/06/18 14:59 Dose: 20 mg Gabapentin (Neurontin) [address] [facility] Last Admin: 01/05/18 20:06 Dose: Not Given Gabapentin (Neurontin) 300 mg PO ONETIME ONE Stop: 01/05/18 18:03 Last Admin: 01/05/18 18:08 Dose: 300 mg Gabapentin (Neurontin) 300 mg PO ONETIME ONE Stop: 01/05/18 23:22 Last Admin: 01/05/18 23:38 Dose: 300 mg Gabapentin (Neurontin) [address] [facility] Last Admin: 01/06/18 14:59 Dose: 300 mg Haloperidol Lactate (Haldol) 1 mg IVPUSH ONETIME ONE Stop: 01/06/18 12:07 Last Admin: 01/06/18 12:13 Dose: 1 mg Haloperidol Lactate (Haldol) 2 mg IVPUSH ONETIME ONE Stop: 01/06/18 12:47 Last Admin: 01/06/18 12:52 Dose: 2 mg Sodium Chloride (Normal Saline) 500 mls @ 999 mls/hr IV .BOLUS ONE Stop: 01/05/18 13:59 Last Admin: 01/05/18 13:39 Dose: 999 mls/hr Sodium Chloride (Normal Saline) 500 mls @ 999 mls/hr IV .BOLUS ONE Stop: 01/05/18 16:49 Last Admin: 01/05/18 16:30 Dose: 999 mls/hr Sodium Chloride (Normal Saline) 500 mls @ 500 mls/hr IV ONETIME ONE Stop: 01/05/18 19:14 Last Admin: 01/05/18 18:56 Dose: 500 mls/hr Sodium Chloride (Normal Saline) 1,000 mls @ 100 mls/hr IV ASDIRECTED [facility] Last Admin: 01/05/18 21:47 Dose: 100 mls/hr Lorazepam (Ativan) 0.25 mg IVPUSH ONETIME ONE Stop: 01/05/18 16:55 Last Admin: 01/05/18 17:58 Dose: Not Given Lorazepam (Ativan) 0.5 mg IVPUSH ONETIME ONE Stop: 01/05/18 23:20 Last Admin: 01/05/18 23:38 Dose: 0.5 mg Lorazepam (Ativan) 1 mg IVPUSH ONETIME ONE Stop: 01/06/18 13:54 Last Admin: 01/06/18 13:59 Dose: 1 mg Lorazepam (Ativan) 1 mg IVPUSH ONETIME ONE Stop: 01/06/18 15:18 Last Admin: 01/06/18 15:40 Dose: 1 mg Morphine Sulfate (Morphine) 2 mg IVPUSH ONETIME ONE Stop: 01/06/18 13:39 Last Admin: 01/06/18 13:42 Dose: 2 mg Morphine Sulfate (Morphine) Confirm Administered Dose 2 mg .ROUTE .STK-MED ONE Stop: 01/06/18 13:36 Last Admin: 01/06/18 13:44 Dose: Not Given Non-Formulary Medication (L.Acidoph,Paracasei, B.Lactis [Probiotic]) [address] [facility] Potassium Chloride (Klor-Con M20) 40 meq PO ONETIME ONE Stop: 01/07/18 10:31 Last Admin: 01/07/18 11:37 Dose: 40 meq Pramipexole Dihydrochloride (Mirapex) 0.[address] [facility] Last Admin: 01/06/18 01:14 Dose: Not Given Pramipexole Dihydrochloride (Mirapex) 0.5 mg PO BEDTIME ONE Stop: 01/05/18 18:02 Last Admin: 01/05/18 19:08 Dose: Not Given Pramipexole Dihydrochloride (Mirapex) 0.[address] [facility] Pramipexole Dihydrochloride (Mirapex) 0.[address] [facility] Last Admin: 01/05/18 21:36 Dose: 0.5 mg Pramipexole Dihydrochloride (Mirapex) 0.5 mg PO ONETIME ONE Stop: 01/06/18 23:22 Pramipexole Dihydrochloride (Mirapex) 0.5 mg PO ONETIME ONE Stop: 01/05/18 23:46 Pramipexole Dihydrochloride (Mirapex) 0.5 mg PO ONETIME ONE Stop: 01/05/18 23:46 Last Admin: 01/05/18 23:44 Dose: 0.5 mg Pramipexole Dihydrochloride (Mirapex) 0.[address] [facility] Saccharomyces Boulardii (Florastor) [address] [facility] Last Admin: 01/07/18 09:36 Dose: 500 mg Tramadol HCl (Ultram) 50 mg PO BID PRN PRN Reason: Pain Last Admin: 01/05/18 18:12 Dose: 50 mg Consult PN Assessment/Plan Procedures: Procedures ASSAY OF CREATININE (06/16/14) ASSAY OF FREE THYROXINE (12/19/17) ASSAY OF LIPASE (02/12/17) ASSAY OF MAGNESIUM (12/19/17) ASSAY OF TROPONIN QUANT (02/12/17) ASSAY THYROID STIM HORMONE (12/19/17) BIOPSY SKIN LESION (06/15/16) CHEST X-RAY 1 VIEW FRONTAL (02/12/17) CMBN ANT PST COLPRHY (01/12/16) COMP SCREEN MAMMOGRAM ADD-ON (10/11/16) COMPLETE CBC W/AUTO DIFF WBC (12/19/17) COMPREHEN METABOLIC PANEL (02/12/17) DESTRUCT B9 LESION 1-14 (06/15/16) DESTRUCT PREMALG LESION (06/15/16) ELECTROCARDIOGRAM TRACING (02/12/17) EMERGENCY DEPT VISIT (02/12/17) EMERGENCY DEPT VISIT (10/23/16) EMERGENCY DEPT VISIT (07/27/15) LIPID PANEL (01/18/17) METABOLIC PANEL TOTAL CA (05/10/16) MRI LUMBAR SPINE W/O DYE (06/16/14) OFFICE/OUTPATIENT VISIT EST (12/19/17) ROUTINE VENIPUNCTURE (12/19/17) THER/PROPH/DIAG INJ IV PUSH (02/12/17) TISSUE EXAM BY PATHOLOGIST (06/15/16) TISSUE EXAM BY PATHOLOGIST (01/12/16) TISSUE EXAM BY PATHOLOGIST (10/28/14) TX/PRO/DX INJ NEW DRUG ADDON (02/12/17) URINALYSIS AUTO W/SCOPE (05/10/16) URINE CULTURE/COLONY COUNT (05/10/16) VAG HYST INCLUDING T/O (01/12/16) VITAMIN B-12 (05/10/16) X-RAY EXAM OF ABDOMEN (07/27/15) Problem List Initiated/Reviewed/Updated: Yes My Orders Last 24 Hours: My Active Orders 01/07/18 14:59 Verify Patient Consent Obtain [RC] ASDIRECTED 01/07/18 17:00 KCl/Na Sulf,Bicarb,Cl/PEG 3351 [GoLytely] 4,000 ml PO ONETIME ONE 01/07/18 Dinner Nothing per Oral After Midnight Diet [DIET] 01/08/18 10:00 Schedule Procedure [COMM] Routine Plan: ssurgical consult dictated JANE
[2018-01-07] MEDS ORDERED: Polyethylene Glycol/Electrolytes 4,000 ML Bottle PO ONE (17:00)
[2018-01-07] MEDS: Gabapentin 600 MG Tab PO SCH (20:44)
[2018-01-07] MEDS: Pramipexole 0.25 MG Tab PO SCH (20:45)
[2018-01-07] MEDS: ClonazePAM 0.5 MG Tab PO SCH (20:45)
[2018-01-08] MEDS: Levothyroxine 100 MCG Tab PO SCH (06:24)
--- NOTE | 2018-01-08 07:18 | CONS ---
CONSULTING PHYSICIAN: Mal Harvey MD DATE OF CONSULTATION: 01/07/2018 HISTORY OF PRESENT ILLNESS: An 87-year-old female who came in Monday feeling dizzy and faint with postural hypertension and was found to have a hemoglobin of 6. The patient has been having black tarry stools for a number of days. She is on Plavix. She has not had this before. She has been symptomatic with some chest pain in addition to her dizziness. She is admitted to the hospital. Transfused 3 units. Her hemoglobin stabilized at about 9. Use of the Plavix has been stated as prophylactic in strokes. PAST MEDICAL HISTORY: Has history of anxiety, history of skin cancers in the past, osteoporosis, has replacement knee on the right knee. Had a history of bowel obstruction with surgery and history of pelvic surgery. Has urinary incontinence. Other medical problems, she has had a thyroidectomy. FAMILY HISTORY: That of stroke in the past. SOCIAL HISTORY: Never smoked. No alcohol use. ALLERGIES: No known allergies. PHYSICAL EXAMINATION: VITAL SIGNS: Reveals a temperature of 98, pulse of 92, respirations 16, blood pressure 109/68. HEENT: Eyes: Sclerae white. Extraocular muscle motion normal. Oral cavity healthy mucous membrane. NECK: Supple. No nodes. No thyromegaly. LUNGS: Clear. No rales, rhonchi, fremitus, dullness. HEART: Heart tones regular rate. No S3, S4, jugular venous distention, murmurs. ABDOMEN: Soft. No tenderness, guarding and rebound. EXTREMITIES: Upper and lower extremities, no angulation deformities. No sensorineural deficit. SKIN: Warm and dry. NEUROLOGIC: Cranial nerves III through XII intact. ASSESSMENT: Gastrointestinal bleeding. PLAN: For colonoscopy, EGD. Discussed the procedure, the risks, complications. She understands and consents. MMODAL /[id number]
--- NOTE | 2018-01-08 08:19 | PCM.PN ---
- General Info Date of Service: 01/08/18 Admission Dx/Problem (Free Text): Admission Diagnosis/Problem Admission Diagnosis/Problem Hypotension Ama is seen initially today while ambulating in halls with PT this morning; she became weak, lightheaded and dizzy, needed a chair and WC ride back to room. She did not feel CP or palpitations during this time. She slept well, minimal to no RLS symptoms. No abd pain, n/v. She did prep for endoscopy scheduled for today so has had loose stools overnight and this morning. VSS on RA. Labs with hgb down to 7.8 this am. Will plan for transfusion of 2 units PRBC's today. Functional Status: Reports: Pain Controlled, Ambulating, Urinating. Denies: Tolerating Diet (NPO since MN for endoscopy today) - Review of Systems General: Reports: Weakness (more this morning), Fatigue, Appetite (she is hungry this morning but NPO for scheduled endoscopy). Denies: Fever, Chills HEENT: Reports: No Symptoms Pulmonary: Reports: No Symptoms. Denies: Shortness of Breath, Cough Cardiovascular: Reports: Lightheadedness (with activity), Other (dizziness with ambulation this morning). Denies: Chest Pain (resolved) Gastrointestinal: Reports: Melena. Denies: Abdominal Pain Musculoskeletal: Reports: No Symptoms Neurological: Reports: Dizziness, Weakness, Other (RLS, improved some last night ) - Patient Data Vitals - Most Recent: Last Vital Signs Temp 97.9 F 01/08/18 02:54 Pulse 77 01/08/18 02:54 Resp 16 01/08/18 02:54 BP 122/86 01/08/18 02:54 Pulse Ox 91 L 01/08/18 02:54 Weight - Most Recent: 112 lb 6.4 oz I&O - Last 24 Hours: Intake & Output 01/07/18 01/08/18 01/08/18 22:59 06:59 14:59 Intake Total 900 600 Output Total 1050 Balance -150 600 Lab Results Last 24 Hours: Laboratory Results - last 24 hr 01/07/18 01/08/18 01/08/18 Range/Units 18:50 05:55 05:55 WBC 4.97 (3.98-10.04) K/mm3 RBC 2.79 L (3.98-5.22) M/mm3 Hgb 9.5 L 7.8 L (11.2-15.7) gm/L Hct 28.9 L 24.8 L (34.1-44.9) % MCV 88.9 (79.4-94.8) fl MCH 28.0 (25.6-32.2) pg MCHC 31.5 L (32.2-35.5) g/dl RDW Std Deviation 47.9 H (36.4-46.3) fL Plt Count 130 L (182-369) K/mm3 MPV 10.6 (9.4-12.3) fl Neut % (Auto) 60.5 (34.0-71.1) % Lymph % (Auto) 26.4 (19.3-51.7) % [place] % (Auto) 10.3 (4.7-12.5) % Eos % (Auto) 2.0 (0.7-5.8) Baso % (Auto) 0.8 (0.1-1.2) % Neut # (Auto) 3.01 (1.56-6.13) K/mm3 Lymph # (Auto) 1.31 (1.18-3.74) K/mm3 [place] # (Auto) 0.51 H (0.24-0.36) K/mm3 Eos # (Auto) 0.10 (0.04-0.36) K/mm3 Baso # (Auto) 0.04 (0.01-0.08) K/mm3 Manual Slide Review Abnormal smear Sodium 143 (136-145) mEq/L Potassium 3.9 (3.5-5.1) mEq/L Chloride 110 H (98-107) mEq/L Carbon Dioxide 27 (21-32) mEq/L Anion Gap 9.9 (5-15) BUN 39 H (7-18) mg/dL Creatinine 0.6 (0.55-1.02) mg/dL Est Cr Clr Drug Dosing 54.17 mL/min Estimated GFR (MDRD) > 60 (>60) mL/min BUN/Creatinine Ratio 65.0 H (14-18) Glucose 96 (83-115) mg/dL Lactic Acid (0.4-2.0) mmol/L Calcium 8.1 L (8.5-10.1) mg/dL C-Reactive Protein < 0.2 (<1.0) mg/dL 01/08/18 Range/Units 05:55 WBC (3.98-10.04) K/mm3 RBC (3.98-5.22) M/mm3 Hgb (11.2-15.7) gm/L Hct (34.1-44.9) % MCV (79.4-94.8) fl MCH (25.6-32.2) pg MCHC (32.2-35.5) g/dl RDW Std Deviation (36.4-46.3) fL Plt Count (182-369) K/mm3 MPV (9.4-12.3) fl Neut % (Auto) (34.0-71.1) % Lymph % (Auto) (19.3-51.7) % [place] % (Auto) (4.7-12.5) % Eos % (Auto) (0.7-5.8) Baso % (Auto) (0.1-1.2) % Neut # (Auto) (1.56-6.13) K/mm3 Lymph # (Auto) (1.18-3.74) K/mm3 [place] # (Auto) (0.24-0.36) K/mm3 Eos # (Auto) (0.04-0.36) K/mm3 Baso # (Auto) (0.01-0.08) K/mm3 Manual Slide Review Sodium (136-145) mEq/L Potassium (3.5-5.1) mEq/L Chloride (98-107) mEq/L Carbon Dioxide (21-32) mEq/L Anion Gap (5-15) BUN (7-18) mg/dL Creatinine (0.55-1.02) mg/dL Est Cr Clr Drug Dosing mL/min Estimated GFR (MDRD) (>60) mL/min BUN/Creatinine Ratio (14-18) Glucose (83-115) mg/dL Lactic Acid 0.7 (0.4-2.0) mmol/L Calcium (8.5-10.1) mg/dL C-Reactive Protein (<1.0) mg/dL Med Orders - Current: Current Medications Citalopram Hydrobromide (Celexa) 40 mg PO DAILY NANCY Last Admin: 01/06/18 09:23 Dose: 40 mg Clonazepam (Klonopin) 0.5 mg PO BEDTIME [facility] Last Admin: 01/07/18 20:45 Dose: 0.5 mg Gabapentin (Neurontin) 300 mg PO BID@0900,1600 [facility] Last Admin: 01/07/18 15:23 Dose: 300 mg Gabapentin (Neurontin) 600 mg PO BEDTIME [facility] Last Admin: 01/07/18 20:44 Dose: 600 mg Hydralazine HCl (Apresoline) 10 mg IVPUSH Q4H PRN PRN Reason: Hypertension Levothyroxine Sodium (Synthroid) 100 mcg PO ACBREAKFAST [facility] Last Admin: 01/08/18 06:24 Dose: Not Given Lorazepam (Ativan) 0.5 mg IVPUSH Q8H PRN PRN Reason: Anxiety Last Admin: 01/06/18 03:18 Dose: 0.5 mg Magnesium Sulfate (Pharmacy To Dose - Magnesium Replacement) 1 dose .XX ASDIRECTED [facility] Metoprolol Tartrate (Lopressor) 5 mg IVPUSH Q4H PRN PRN Reason: Tachycardia (Glucosamine/Chondro Smith A [Cosamin Ds] 1 Tab)Own Med 1 tab PO DAILY [facility] Last Admin: 01/07/18 12:31 Dose: Not Given Potassium Chloride (Pharmacy To Dose - Potassium Replacement) 1 dose .XX ASDIRECTED [facility] Pramipexole Dihydrochloride (Mirapex) 0.5 mg PO BEDTIME [facility] Last Admin: 01/07/18 20:45 Dose: 0.5 mg Ropinirole HCl (Requip) 1 mg PO BID [facility] Last Admin: 01/07/18 20:45 Dose: 1 mg Saccharomyces Boulardii (Florastor) 250 mg PO BID [facility] Temazepam (Restoril) 7.5 mg PO BEDTIME PRN PRN Reason: Insomnia Last Admin: 01/05/18 21:36 Dose: 7.5 mg Tramadol HCl (Ultram) 100 mg PO TID [facility] Last Admin: 01/07/18 20:44 Dose: 100 mg Discontinued Medications Buspirone HCl (Buspar) 7.5 mg PO BID [facility] Last Admin: 01/06/18 10:38 Dose: 7.5 mg Clopidogrel Bisulfate (Plavix) 75 mg PO DAILY [facility] Last Admin: 01/07/18 09:37 Dose: 75 mg Enoxaparin Sodium (Lovenox) 40 mg SUBCUT DAILY [facility] Last Admin: 01/07/18 09:37 Dose: 40 mg Furosemide (Lasix) 20 mg IVPUSH ASDIRECTED PRN PRN Reason: Bleeding Last Admin: 01/06/18 14:59 Dose: 20 mg Gabapentin (Neurontin) 300 mg PO BEDTIME [facility] Last Admin: 01/05/18 20:06 Dose: Not Given Gabapentin (Neurontin) 300 mg PO ONETIME ONE Stop: 01/05/18 18:03 Last Admin: 01/05/18 18:08 Dose: 300 mg Gabapentin (Neurontin) 300 mg PO ONETIME ONE Stop: 01/05/18 23:22 Last Admin: 01/05/18 23:38 Dose: 300 mg Gabapentin (Neurontin) 300 mg PO TID [facility] Last Admin: 01/06/18 14:59 Dose: 300 mg Haloperidol Lactate (Haldol) 1 mg IVPUSH ONETIME ONE Stop: 01/06/18 12:07 Last Admin: 01/06/18 12:13 Dose: 1 mg Haloperidol Lactate (Haldol) 2 mg IVPUSH ONETIME ONE Stop: 01/06/18 12:47 Last Admin: 01/06/18 12:52 Dose: 2 mg Sodium Chloride (Normal Saline) 500 mls @ 999 mls/hr IV .BOLUS ONE Stop: 01/05/18 13:59 Last Admin: 01/05/18 13:39 Dose: 999 mls/hr Sodium Chloride (Normal Saline) 500 mls @ 999 mls/hr IV .BOLUS ONE Stop: 01/05/18 16:49 Last Admin: 01/05/18 16:30 Dose: 999 mls/hr Sodium Chloride (Normal Saline) 500 mls @ 500 mls/hr IV ONETIME ONE Stop: 01/05/18 19:14 Last Admin: 01/05/18 18:56 Dose: 500 mls/hr Sodium Chloride (Normal Saline) 1,000 mls @ 100 mls/hr IV ASDIRECTED [facility] Last Admin: 01/05/18 21:47 Dose: 100 mls/hr Sodium Chloride (Normal Saline) 250 mls @ 25 mls/hr IV ASDIRECTED [facility] Last Admin: 01/06/18 09:25 Dose: 25 mls/hr Lorazepam (Ativan) 0.25 mg IVPUSH ONETIME ONE Stop: 01/05/18 16:55 Last Admin: 01/05/18 17:58 Dose: Not Given Lorazepam (Ativan) 0.5 mg IVPUSH ONETIME ONE Stop: 01/05/18 23:20 Last Admin: 01/05/18 23:38 Dose: 0.5 mg Lorazepam (Ativan) 1 mg IVPUSH ONETIME ONE Stop: 01/06/18 13:54 Last Admin: 01/06/18 13:59 Dose: 1 mg Lorazepam (Ativan) 1 mg IVPUSH ONETIME ONE Stop: 01/06/18 15:18 Last Admin: 01/06/18 15:40 Dose: 1 mg Morphine Sulfate (Morphine) 2 mg IVPUSH ONETIME ONE Stop: 01/06/18 13:39 Last Admin: 01/06/18 13:42 Dose: 2 mg Morphine Sulfate (Morphine) Confirm Administered Dose 2 mg .ROUTE .STK-MED ONE Stop: 01/06/18 13:36 Last Admin: 01/06/18 13:44 Dose: Not Given Non-Formulary Medication (L.Acidoph,Paracasei, B.Lactis [Probiotic]) 1 each PO DAILY [facility] Polyethylene Glycol/Electrolytes (Golytely) 4,000 ml PO ONETIME ONE Stop: 01/07/18 17:01 Last Admin: 01/07/18 17:02 Dose: 4,000 ml Potassium Chloride (Klor-Con M20) 40 meq PO ONETIME ONE Stop: 01/07/18 10:31 Last Admin: 01/07/18 11:37 Dose: 40 meq Pramipexole Dihydrochloride (Mirapex) 0.5 mg PO BEDTIME [facility] Last Admin: 01/06/18 01:14 Dose: Not Given Pramipexole Dihydrochloride (Mirapex) 0.5 mg PO BEDTIME ONE Stop: 01/05/18 18:02 Last Admin: 01/05/18 19:08 Dose: Not Given Pramipexole Dihydrochloride (Mirapex) 0.5 mg PO BEDTIME [facility] Pramipexole Dihydrochloride (Mirapex) 0.5 mg PO BEDTIME [facility] Last Admin: 01/05/18 21:36 Dose: 0.5 mg Pramipexole Dihydrochloride (Mirapex) 0.5 mg PO ONETIME ONE Stop: 01/06/18 23:22 Pramipexole Dihydrochloride (Mirapex) 0.5 mg PO ONETIME ONE Stop: 01/05/18 23:46 Pramipexole Dihydrochloride (Mirapex) 0.5 mg PO ONETIME ONE Stop: 01/05/18 23:46 Last Admin: 01/05/18 23:44 Dose: 0.5 mg Pramipexole Dihydrochloride (Mirapex) 0.5 mg PO BEDTIME [facility] Saccharomyces Boulardii (Florastor) 500 mg PO DAILY [facility] Last Admin: 01/07/18 09:36 Dose: 500 mg Tramadol HCl (Ultram) 50 mg PO BID PRN PRN Reason: Pain Last Admin: 01/05/18 18:12 Dose: 50 mg - Exam Quality Assessment: DVT Prophylaxis General: Alert, Cooperative, No Acute Distress HEENT: Pupils Equal, EOMI, Mucous Membr. Moist/[place] Neck: Supple Lungs: Normal Respiratory Effort, Decreased Breath Sounds (bases) Cardiovascular: Regular Rate, Regular Rhythm, Murmurs (grade 2 systolic) GI/Abdominal Exam: Normal Bowel Sounds, Soft, Non-Tender. No: Guarding, Rigid, Rebound, Tender (Female) Exam: Deferred Back Exam: Normal Inspection Extremities: Normal Inspection, Normal Capillary Refill Peripheral Pulses: 2+: Dorsalis Pedis (L), Dorsalis Pedis (R) Neurological: No New Focal Deficit Psy/Mental Status: Alert, Normal Affect, Normal Mood - Problem List & Annotations (1) Anemia SNOMED Code(s): 147031446 Code(s): D64.9 - ANEMIA, UNSPECIFIED Status: Acute Priority: High Current Visit: Yes Qualifiers: Anemia type: unspecified type Qualified Code(s): D64.9 - Anemia, unspecified (2) Dizziness SNOMED Code(s): 488752695 Code(s): R42 - DIZZINESS AND GIDDINESS Status: Acute Priority: High Current Visit: Yes (3) Orthostatic hypotension SNOMED Code(s): 74188545 Code(s): I95.1 - ORTHOSTATIC HYPOTENSION Status: Acute Priority: High Current Visit: Yes (4) Restless leg syndrome SNOMED Code(s): 37056344 Code(s): G25.81 - RESTLESS LEGS SYNDROME Status: Chronic Priority: Medium Current Visit: Yes - Problem List Review Problem List Initiated/Reviewed/Updated: Yes - Plan Plan:: Impression: Acute: Anemia - Hx/o GI Bleed - Risk Factors; Diverticulosis and Chronic Constipation - Hgb dropped to 6.5; recovered to 9.5 S/p 3 units of PRBC transfusion --> 7.8 this morning, will plan 2 units PRBC today - Heme-occult positive, iron studies WNL, add B12 and folic acid today for full eval - Dr. Harvey consulted--scheduled for endoscopy today -Was symptomatic again this morning with activity-- transfuse as above Restless Leg Syndrome, Improved - Very difficult to manage - Spent 35 minutes treating patient acutely with multiple meds for extreme restlessness/RLS - Adjust RLS meds: increased Neurontin and Tramadol; Added Klonopin Resolved: CP Resolved, atypical-->resolved, minimal change in TnI Orthostatic, moderate-severely symptomatic Chronic: Impaired Vision/Hearing HLD Hypothyroidism- TSH WNL Constipation Diverticulosis Urinary Incontinence OA/DJD Osteoporosis Migraines MORSE Anxiety History of Rectocele/Cystocele History of Uterine Prolapse Hx/o CVA on Statin and Plavix Hx/o Small Bowel Resection Plan: She is clinically stable Continue current treatment Ischemic work up: troponin x3 all negative Continue clear liquid diet; npo midnight Endoscopy in AM Dr. Harvey following Routine AM Labs DVT/GI prophylaxis Updated daughter and at bed side. She will be scheduled for endoscopy in AM. Patient is Full code status
--- NOTE | 2018-01-08 08:37 | PCM.PREANE ---
Preanesthetic Assessment - Procedure Proposed Procedure: Diagnostic EGD/Colonoscopy - Anesthesia/Transfusion/Family Hx Anesthesia History: Prior Anesthesia Without Reaction Family History of Anesthesia Reaction: No Transfusion History: Prior Transfusion Without Reaction Intubation History: Unknown - Review of Systems General: Weakness, Fatigue Cardiovascular: Other (HLD, on plavix for CVA prevention (last taken am of 01/04 per patient) ) Gastrointestinal: No Symptoms Neurological: No Symptoms Other: Reports: Thyroid Problems (thryoidectomy), Depression, Anxiety - Physical Assessment NPO Status Date: 01/07/18 NPO Status Time: 21:00 Pulse: 77 O2 Sat by Pulse Oximetry: 91 Respiratory Rate: 16 Blood Pressure: 122/86 Temperature: 36.6 C Vital Signs: Last Vital Signs Temp 36.6 C 01/08/18 02:54 Pulse 77 01/08/18 02:54 Resp 16 01/08/18 02:54 BP 122/86 01/08/18 02:54 Pulse Ox 91 L 01/08/18 02:54 Height: 1.63 m Weight: 50.984 kg ASA Class: 2 Mental Status: Alert & Oriented x3 Airway Class: Mallampati = 2 Dentition: Reports: Partial (upper and lower ) Thyro-Mental Finger Breadths: 3 Mouth Opening Finger Breadths: 3 ROM/Head Extension: Full Lungs: Clear to Auscultation, Normal Respiratory Effort Cardiovascular: Regular Rate, Regular Rhythm - Lab Values: Laboratory Last Values WBC 4.97 K/mm3 (3.98-10.04) 01/08/18 05:55 RBC 2.79 M/mm3 (3.98-5.22) L 01/08/18 05:55 Hgb 7.8 gm/L (11.2-15.7) L 01/08/18 05:55 Hct 24.8 % (34.1-44.9) L 01/08/18 05:55 MCV 88.9 fl (79.4-94.8) 01/08/18 05:55 MCH 28.0 pg (25.6-32.2) 01/08/18 05:55 MCHC 31.5 g/dl (32.2-35.5) L 01/08/18 05:55 RDW Std Deviation 47.9 fL (36.4-46.3) H 01/08/18 05:55 Plt Count 130 K/mm3 (182-369) L 01/08/18 05:55 MPV 10.6 fl (9.4-12.3) 01/08/18 05:55 Neut % (Auto) 60.5 % (34.0-71.1) 01/08/18 05:55 Lymph % (Auto) 26.4 % (19.3-51.7) 01/08/18 05:55 [place] % (Auto) 10.3 % (4.7-12.5) 01/08/18 05:55 Eos % (Auto) 2.0 (0.7-5.8) 01/08/18 05:55 Baso % (Auto) 0.8 % (0.1-1.2) 01/08/18 05:55 Neut # (Auto) 3.01 K/mm3 (1.56-6.13) 01/08/18 05:55 Lymph # (Auto) 1.31 K/mm3 (1.18-3.74) 01/08/18 05:55 [place] # (Auto) 0.51 K/mm3 (0.24-0.36) H 01/08/18 05:55 Eos # (Auto) 0.10 K/mm3 (0.04-0.36) 01/08/18 05:55 Baso # (Auto) 0.04 K/mm3 (0.01-0.08) 01/08/18 05:55 Manual Slide Review Abnormal smear 01/08/18 05:55 PT 11.6 SECONDS (8.0-13.0) 01/05/18 11:30 INR 1.06 01/05/18 11:30 APTT 26 SECONDS (22-36) 01/05/18 11:30 Sodium 143 mEq/L (136-145) 01/08/18 05:55 Potassium 3.9 mEq/L (3.5-5.1) 01/08/18 05:55 Chloride 110 mEq/L (98-107) H 01/08/18 05:55 Carbon Dioxide 27 mEq/L (21-32) 01/08/18 05:55 Anion Gap 9.9 (5-15) 01/08/18 05:55 BUN 39 mg/dL (7-18) H 01/08/18 05:55 Creatinine 0.6 mg/dL (0.55-1.02) 01/08/18 05:55 Est Cr Clr Drug Dosing 54.17 mL/min 01/08/18 05:55 Estimated GFR (MDRD) > 60 mL/min (>60) 01/08/18 05:55 BUN/Creatinine Ratio 65.0 (14-18) H 01/08/18 05:55 Glucose 96 mg/dL (83-115) 01/08/18 05:55 Lactic Acid 0.7 mmol/L (0.4-2.0) 01/08/18 05:55 Calcium 8.1 mg/dL (8.5-10.1) L 01/08/18 05:55 Iron 172 ug/dL (50-170) H 01/06/18 05:50 TIBC 151 ug/dL (100-400) 01/06/18 05:50 % Saturation 114 % (20-55) H 01/06/18 05:50 Transferrin 121 mg/dL (202-364) L 01/06/18 05:50 Total Bilirubin 0.3 mg/dL (0.2-1.0) 01/05/18 11:30 AST 17 U/L (15-37) 01/05/18 11:30 ALT 18 U/L (14-59) 01/05/18 11:30 Alkaline Phosphatase 54 U/L (46-116) 01/05/18 11:30 Troponin I 0.063 ng/mL (0.00-0.056) H* 01/06/18 05:50 C-Reactive Protein < 0.2 mg/dL (<1.0) 01/08/18 05:55 Total Protein 6.2 g/dl (6.4-8.2) L 01/05/18 11:30 Albumin 3.1 g/dl (3.4-5.0) L 01/05/18 11:30 Globulin 3.1 gm/dL 01/05/18 11:30 Albumin/Globulin Ratio 1.0 (1-2) 01/05/18 11:30 TSH 3rd Generation 1.004 uIU/mL (0.358-3.74) 01/05/18 11:30 Urine Color Yellow (Yellow) 01/05/18 13:17 Urine Appearance Clear (Clear) 01/05/18 13:17 Urine pH 7.5 (5.0-8.0) 01/05/18 13:17 Ur Specific [place] 1.020 (1.005-1.030) 01/05/18 13:17 Urine Protein Negative (Negative) 01/05/18 13:17 Urine Glucose (UA) Negative (Negative) 01/05/18 13:17 Urine Ketones Negative (Negative) 01/05/18 13:17 Urine Occult Blood Negative (Negative) 01/05/18 13:17 Urine Nitrite Negative (Negative) 01/05/18 13:17 Urine Bilirubin Negative (Negative) 01/05/18 13:17 Urine Urobilinogen 0.2 (0.2-1.0) 01/05/18 13:17 Ur Leukocyte Esterase Trace (Negative) H 01/05/18 13:17 Urine RBC Not seen /hpf (0-5) 01/05/18 13:17 Urine WBC 0-5 /hpf (0-5) 01/05/18 13:17 Ur Epithelial Cells 0-5 /hpf (0-5) 01/05/18 13:17 Urine Bacteria Few /hpf (FEW) 01/05/18 13:17 Urine Mucus Not seen /hpf (FEW) 01/05/18 13:17 Mycoplasma pneumon IgM Negative (NEGATIVE) 01/05/18 14:20 Blood Type O POSITIVE 01/06/18 05:50 Gel Antibody Screen Negative 01/06/18 05:50 Crossmatch See Detail 01/06/18 05:50 - Allergies Allergies/Adverse Reactions: Allergies Allergy/AdvReac Type Severity Reaction Status Date / Time diphenhydramine Allergy Anxiety Verified 01/07/18 10:00 [From Benadryl] - Blood Blood Available: No Product(s) Available: None - Anesthesia Plan Pre-Op Medication Ordered: None - Acknowledgements Anesthesia Type Planned: MAC Pt an Appropriate Candidate for the Planned Anesthesia: Yes Alternatives and Risks of Anesthesia Discussed w Pt/Guardian: Yes Pt/Guardian Understands and Agrees with Anesthesia Plan: Yes PreAnesthesia Questionnaire HEENT History: Reports: Hard of Hearing, Impaired Vision Other HEENT History: wears eyeglasses, hearing aids, dentures Cardiovascular History: Reports: High Cholesterol Other Cardiovascular History: states is on Zocor for prevention of stroke, does not have high cholesterol. Respiratory History: Reports: None Gastrointestinal History: Reports: Bowel Obstruction, Chronic Constipation, Diverticulosis Other Gastrointestinal History: nausea/vomiting, small bowel resection Genitourinary History: Reports: Urinary Incontinence Other Genitourinary History: cystocele, rectocele, pelvic orgran prolapse TEST SPECIALIST History: Reports: , Prolapsed Uterus Musculoskeletal History: Reports: Arthritis, Osteoporosis Other Musculoskeletal History: DJD Neurological History: Reports: Migraines Other Neuro History: states mother had stroke, states was started on Plavix and Zocor for preventative measures only. 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 - Past Surgical History HEENT Surgical History: Reports: Cataract Surgery, Naso-Sinus Surgery GI Surgical History: Reports: Small Bowel Endocrine Surgical History: Reports: Thyroidectomy Musculoskeletal Surgical History: Reports: Knee Replacement - SUBSTANCE USE Smoking Status *Q: Never Smoker Tobacco Use Within Last Twelve Months: No Second Hand Smoke Exposure: No Recreational Drug Use History: No - HOME MEDS Home Medications: Home Meds Clopidogrel [Plavix] 75 mg PO DAILY 07/27/15 [History] Escitalopram [Lexapro] 20 mg PO DAILY 07/27/15 [History] Gabapentin [Neurontin] 300 mg PO BEDTIME 07/27/15 [History] Glucosamine/Chondro Smith A [Cosamin DS] 1 tab PO DAILY 07/27/15 [History] Levothyroxine [Synthroid] 100 mcg PO DAILY 07/27/15 [History] traMADol [Ultram] 50 mg PO BID PRN 07/27/15 [History] Diclofenac Sodium [Voltaren 1% Gel] 1 dose TOP BID PRN 02/12/17 [History] Pramipexole [Mirapex] 0.5 mg PO BEDTIME 02/12/17 [History] Acetaminophen 325 mg PO BEDTIME PRN 01/05/18 [History] L.acidoph,Paracasei, B.lactis [Probiotic] 1 each PO DAILY 01/05/18 [History] - CURRENT (IN HOUSE) MEDS Current Meds: Current Medications Citalopram Hydrobromide (Celexa) 40 mg PO DAILY [facility] Last Admin: 01/06/18 09:23 Dose: 40 mg Clonazepam (Klonopin) 0.5 mg PO BEDTIME [facility] Last Admin: 01/07/18 20:45 Dose: 0.5 mg Gabapentin (Neurontin) 300 mg PO BID@0900,1600 [facility] Last Admin: 01/07/18 15:23 Dose: 300 mg Gabapentin (Neurontin) 600 mg PO BEDTIME [facility] Last Admin: 01/07/18 20:44 Dose: 600 mg Hydralazine HCl (Apresoline) 10 mg IVPUSH Q4H PRN PRN Reason: Hypertension Levothyroxine Sodium (Synthroid) 100 mcg PO ACBREAKFAST [facility] Last Admin: 01/08/18 06:24 Dose: Not Given Lorazepam (Ativan) 0.5 mg IVPUSH Q8H PRN PRN Reason: Anxiety Last Admin: 01/06/18 03:18 Dose: 0.5 mg Magnesium Sulfate (Pharmacy To Dose - Magnesium Replacement) 1 dose .XX ASDIRECTED [facility] Metoprolol Tartrate (Lopressor) 5 mg IVPUSH Q4H PRN PRN Reason: Tachycardia (Glucosamine/Chondro Smith A [Cosamin Ds] 1 Tab)Own Med 1 tab PO DAILY [facility] Last Admin: 01/07/18 12:31 Dose: Not Given Potassium Chloride (Pharmacy To Dose - Potassium Replacement) 1 dose .XX ASDIRECTED [facility] Pramipexole Dihydrochloride (Mirapex) 0.5 mg PO BEDTIME [facility] Last Admin: 01/07/18 20:45 Dose: 0.5 mg Ropinirole HCl (Requip) 1 mg PO BID [facility] Last Admin: 01/07/18 20:45 Dose: 1 mg Saccharomyces Boulardii (Florastor) 250 mg PO BID [facility] Temazepam (Restoril) 7.5 mg PO BEDTIME PRN PRN Reason: Insomnia Last Admin: 01/05/18 21:36 Dose: 7.5 mg Tramadol HCl (Ultram) 100 mg PO TID [facility] Last Admin: 01/07/18 20:44 Dose: 100 mg Discontinued Medications Buspirone HCl (Buspar) 7.5 mg PO BID [facility] Last Admin: 01/06/18 10:38 Dose: 7.5 mg Clopidogrel Bisulfate (Plavix) 75 mg PO DAILY [facility] Last Admin: 01/07/18 09:37 Dose: 75 mg Enoxaparin Sodium (Lovenox) 40 mg SUBCUT DAILY [facility] Last Admin: 02/18/18 09:37 Dose: 40 mg Furosemide (Lasix) 20 mg IVPUSH ASDIRECTED PRN PRN Reason: Bleeding Last Admin: 01/06/18 14:59 Dose: 20 mg Gabapentin (Neurontin) 300 mg PO BEDTIME [facility] Last Admin: 01/05/18 20:06 Dose: Not Given Gabapentin (Neurontin) 300 mg PO ONETIME ONE Stop: 01/05/18 18:03 Last Admin: 01/05/18 18:08 Dose: 300 mg Gabapentin (Neurontin) 300 mg PO ONETIME ONE Stop: 01/05/18 23:22 Last Admin: 01/05/18 23:38 Dose: 300 mg Gabapentin (Neurontin) 300 mg PO TID [facility] Last Admin: 01/06/18 14:59 Dose: 300 mg Haloperidol Lactate (Haldol) 1 mg IVPUSH ONETIME ONE Stop: 01/06/18 12:07 Last Admin: 01/06/18 12:13 Dose: 1 mg Haloperidol Lactate (Haldol) 2 mg IVPUSH ONETIME ONE Stop: 01/06/18 12:47 Last Admin: 01/06/18 12:52 Dose: 2 mg Sodium Chloride (Normal Saline) 500 mls @ 999 mls/hr IV .BOLUS ONE Stop: 01/05/18 13:59 Last Admin: 01/05/18 13:39 Dose: 999 mls/hr Sodium Chloride (Normal Saline) 500 mls @ 999 mls/hr IV .BOLUS ONE Stop: 01/05/18 16:49 Last Admin: 01/05/18 16:30 Dose: 999 mls/hr Sodium Chloride (Normal Saline) 500 mls @ 500 mls/hr IV ONETIME ONE Stop: 01/05/18 19:14 Last Admin: 01/05/18 18:56 Dose: 500 mls/hr Sodium Chloride (Normal Saline) 1,000 mls @ 100 mls/hr IV ASDIRECTED [facility] Last Admin: 01/05/18 21:47 Dose: 100 mls/hr Sodium Chloride (Normal Saline) 250 mls @ 25 mls/hr IV ASDIRECTED [facility] Last Admin: 01/06/18 09:25 Dose: 25 mls/hr Lorazepam (Ativan) 0.25 mg IVPUSH ONETIME ONE Stop: 01/05/18 16:55 Last Admin: 01/05/18 17:58 Dose: Not Given Lorazepam (Ativan) 0.5 mg IVPUSH ONETIME ONE Stop: 01/05/18 23:20 Last Admin: 01/05/18 23:38 Dose: 0.5 mg Lorazepam (Ativan) 1 mg IVPUSH ONETIME ONE Stop: 01/06/18 13:54 Last Admin: 01/06/18 13:59 Dose: 1 mg Lorazepam (Ativan) 1 mg IVPUSH ONETIME ONE Stop: 01/06/18 15:18 Last Admin: 01/06/18 15:40 Dose: 1 mg Morphine Sulfate (Morphine) 2 mg IVPUSH ONETIME ONE Stop: 01/06/18 13:39 Last Admin: 01/06/18 13:42 Dose: 2 mg Morphine Sulfate (Morphine) Confirm Administered Dose 2 mg .ROUTE .STK-MED ONE Stop: 01/06/18 13:36 Last Admin: 01/06/18 13:44 Dose: Not Given Non-Formulary Medication (L.Acidoph,Paracasei, B.Lactis [Probiotic]) 1 each PO DAILY [facility] Polyethylene Glycol/Electrolytes (Golytely) 4,000 ml PO ONETIME ONE Stop: 01/07/18 17:01 Last Admin: 01/07/18 17:02 Dose: 4,000 ml Potassium Chloride (Klor-Con M20) 40 meq PO ONETIME ONE Stop: 01/07/18 10:31 Last Admin: 01/07/18 11:37 Dose: 40 meq Pramipexole Dihydrochloride (Mirapex) 0.5 mg PO BEDTIME [facility] Last Admin: 01/06/18 01:14 Dose: Not Given Pramipexole Dihydrochloride (Mirapex) 0.5 mg PO BEDTIME ONE Stop: 01/05/18 18:02 Last Admin: 01/05/18 19:08 Dose: Not Given Pramipexole Dihydrochloride (Mirapex) 0.5 mg PO BEDTIME [facility] Pramipexole Dihydrochloride (Mirapex) 0.5 mg PO BEDTIME [facility] Last Admin: 01/05/18 21:36 Dose: 0.5 mg Pramipexole Dihydrochloride (Mirapex) 0.5 mg PO ONETIME ONE Stop: 01/06/18 23:22 Pramipexole Dihydrochloride (Mirapex) 0.5 mg PO ONETIME ONE Stop: 01/05/18 23:46 Pramipexole Dihydrochloride (Mirapex) 0.5 mg PO ONETIME ONE Stop: 01/05/18 23:46 Last Admin: 01/05/18 23:44 Dose: 0.5 mg Pramipexole Dihydrochloride (Mirapex) 0.5 mg PO BEDTIME [facility] Saccharomyces Boulardii (Florastor) 500 mg PO DAILY [facility] Last Admin: 01/07/18 09:36 Dose: 500 mg Tramadol HCl (Ultram) 50 mg PO BID PRN PRN Reason: Pain Last Admin: 01/05/18 18:12 Dose: 50 mg
[2018-01-08] MEDS ORDERED: Propofol 200 MG/20 ML SDV ONE ×2 (10:33→12:46)
[2018-01-08] MEDS ORDERED: Lidocaine 1% 0 ML ONE (10:33)
[2018-01-08] MEDS: Gabapentin 300 MG Cap PO SCH ×3 (11:09→14:59)
[2018-01-08] MEDS: traMADol 50 MG Tab PO SCH ×3 (11:09→22:08)
[2018-01-08] MEDS ORDERED: Sodium Chloride 0.9% 1,000 ML ONE (11:23)
[2018-01-08] MEDS: Saccharomyces Boulardii (Probiotic) 250 MG Cap PO SCH ×2 (12:05→22:07)
[2018-01-08] MEDS: rOPINIRole 1 MG Tab PO SCH ×3 (12:05→22:07)
[2018-01-08] MEDS ORDERED: Lidocaine 1% 4 ML ONE (12:47)
[2018-01-08] MEDS ORDERED: Simethicone Drops 40 MG/0.6 ML 30 ML Bottle ONE (13:27)
[2018-01-08] MEDS ORDERED: Lactated Ringers 1,000 ML ONE (14:01)
[2018-01-08] MEDS ORDERED: ePHEDrine 50 MG/ML SDV ONE (14:01)
--- NOTE | 2018-01-08 14:05 | PCM.OPNOTE ---
- General Post-Op/Procedure Note Date of Surgery/Procedure: 01/08/18 Operative Procedure(s): egd with bx/colonoscopy Pre Op Diagnosis: gi bleeding Post-Op Diagnosis: Same Anesthesia Technique: MAC Primary Surgeon: Mal Harvey EBL in mLs: 0 Complications: None Condition: Good Free Text/Narrative:: Intake & Output 01/07/18 01/08/18 01/08/18 23:59 07:59 15:59 Intake Total 900 600 0 Output Total 1050 Balance -150 600 0
--- NOTE | 2018-01-08 14:16 | PCM.POSTAN ---
POST ANESTHESIA ASSESSMENT - MENTAL STATUS Mental Status: Alert, Oriented - VITAL SIGNS Pulse Rate: 62 SaO2: 100 Resp Rate: 14 Blood Pressure: 109/53 Temperature: 36.7 C - RESPIRATORY Respiratory Status: Respiratory Rate WNL, Airway Patent, O2 Saturation Stable - CARDIOVASCULAR CV Status: Pulse Rate WNL, Blood Pressure Stable - GASTROINTESTINAL GI Status: No Symptoms - PAIN Pain Score: 0 - POST OP HYDRATION Hydration Status: Adequate & Stable
[2018-01-08] MEDS: Pramipexole 0.25 MG Tab PO SCH (22:07)
[2018-01-08] MEDS: ClonazePAM 0.5 MG Tab PO SCH (22:08)
[2018-01-08] MEDS: Gabapentin 600 MG Tab PO SCH (22:08)
[2018-01-09 04:23] VITALS: BP 127/56
[2018-01-09] MEDS: Levothyroxine 100 MCG Tab PO SCH (06:18)
--- NOTE | 2018-01-09 06:59 | OR ---
DATE OF OPERATION: 01/08/2018 SURGEON: Mal Harvey MD PREOPERATIVE DIAGNOSIS: Gastrointestinal bleed. POSTOPERATIVE DIAGNOSIS: Gastrointestinal bleed. OPERATION PERFORMED: Colonoscopy of cecum done under IV sedation. FINDINGS: Moderate sigmoid diverticulosis, descending colon. There was an old blood, most concentrated in the small bowel, the ileum, and around the cecum. But there was no active source of bleeding noted in the colon. There were no angiodysplasias, neoplasias, large tumor masses, ulcerations, or notable hemorrhoids. Colonoscopy indicates there was bleeding either in the stomach which may be due to the gastric ulcer or in the small bowel. DESCRIPTION OF PROCEDURE: The patient having been taken to the endoscopy room, connected to monitoring equipment, and given IV sedation for upper GI endoscopy. IV sedation was continued for colonoscopy. Placed in left lateral position. Perianal area was inspected and was normal. Rectal exam showed good sphincter tone. A video Olympus colonoscope was then introduced into the rectum and threaded up without problem to the cecum, where the appendicular orifice was clearly seen. The tip of the scope was then advanced into the ileum for a short distance showing a large amount of old blood there dark and tarry, and less so in the cecum and the ascending and transverse colon. Prep was excellent, [place] cleansing score grade A, and the scope was slowly withdrawn showing the terminal ileum, cecum, ascending colon, transverse colon, descending colon, sigmoid colon, and rectum. The above noted was found. The patient tolerated the procedure, sent to the recovery room in a stable condition. ANESTHESIA: ESTIMATED BLOOD LOSS: MMODAL /[id number]
--- NOTE | 2018-01-09 07:02 | OR ---
DATE OF OPERATION: 01/08/2018 SURGEON: Mal Harvey MD PREOPERATIVE DIAGNOSIS: Gastrointestinal bleed. POSTOPERATIVE DIAGNOSIS: Gastrointestinal bleed. OPERATION PERFORMED: Upper GI endoscopy. FINDINGS: Some inflammation of the antrum and one small superficial gastric ulcer in the antrum shelter between the lesser and the greater curvature. The second portion of the duodenum, duodenal bulb, and pyloric channel were unremarkable. Body and cardia of the stomach were negative. The fundus showed one fundic gland polyp. The hiatus showed a small sliding hiatal hernia. The GE junction was located at 38 cm, and there was no acute disease, just chronic esophagitis. Rest of the esophagus was unremarkable. OPERATION PERFORMED: Esophagogastroduodenoscopy with biopsy done under IV sedation. DESCRIPTION OF PROCEDURE: The patient was taken to the endoscopy room, placed in a supine position, connected to the monitoring equipment, and given IV sedation. A bite block was inserted. The patient was placed in a left lateral position. A video Olympus gastroscope was placed in the posterior oropharynx, under direct vision threaded, past the cricopharyngeus down the esophagus into the stomach. The stomach was insufflated, and the scope passed through the pylorus to the second portion of the duodenum. It was slowly withdrawn showing a normal 2nd portion of the duodenum, duodenal bulb, and pyloric channel. Antrum showed some inflammation and it was biopsied. A small superficial ulcer was noted. No visible vessel or active bleeding were noted, and no black spot. The body, cardia, and then fundus of the stomach were reviewed. J-maneuver showed a small sliding hiatal hernia. Grossly small polyp was seen, only one in the fundus. The scope withdrawn from the GE junction showed some chronic esophagitis, but no active ulceration. It was located at 38 cm. Rest of the esophagus was viewed. The scope withdrawn and it was unremarkable. The patient tolerated the procedure. Specimen was sent to pathology in a labeled container, and patient's IV sedation was continued for colonoscopy. ANESTHESIA: ESTIMATED BLOOD LOSS: MMODAL /[id number]
[2018-01-09] MEDS ORDERED: Pantoprazole 40 MG Tab.CR PO SCH (07:45)
[2018-01-09] MEDS: rOPINIRole 1 MG Tab PO SCH (09:28)
[2018-01-09] MEDS: Saccharomyces Boulardii (Probiotic) 250 MG Cap PO SCH (09:28)
[2018-01-09] MEDS: Sucralfate Suspension 1 GM/10 ML Cup PO SCH ×2 (09:29→13:50)
[2018-01-09] MEDS: Gabapentin 300 MG Cap PO SCH (09:29)
[2018-01-09] MEDS: Citalopram 20 MG Tab PO SCH (09:29)
[2018-01-09] MEDS: traMADol 50 MG Tab PO SCH (09:29)
--- NOTE | 2018-01-09 10:33 | PCM.DCSUM1 ---
Discharge Summary - Hospital Course Free Text/Narrative:: Ama is an 87 year old female presented to ED initially complaining of dizziness, SOB and CP who was found to be orthostatic in the ED. She has no apparent cardiac history but reported prophylactic use of Plavix for CVA prevention. The patient has described an experience of chest heaviness associated with generalized weakness and fatigue. However the patient primarily described restless legs when seen by the hospitalist service. IVF of two 500 cc boluses were given. She will be admitted to [facility] [place] with telemetry for anemia, orthostasis and r/o chest pain/cardiac. - Discharge Data Discharge Date: 01/09/18 (admit date 01/05/18) Discharge Disposition: Home, Self-Care 01 Condition: Good - Discharge Diagnosis/Problem(s) (1) Gastric ulcer SNOMED Code(s): 670692247 ICD Code: K25.9 - GASTRIC ULCER, UNSP ACUTE OR CHRONIC, W/O HEMOR OR PERF Status: Acute Priority: High Current Visit: Yes Qualifiers: Gastric ulcer chronicity: acute Gastric ulcer complication status: without hemorrhage or perforation Qualified Code(s): K25.3 - Acute gastric ulcer without hemorrhage or perforation (2) Anemia SNOMED Code(s): 806637030 ICD Code: D64.9 - ANEMIA, UNSPECIFIED Status: Acute Priority: High Current Visit: Yes Qualifiers: Anemia type: unspecified type Qualified Code(s): D64.9 - Anemia, unspecified (3) Dizziness SNOMED Code(s): 352640106 ICD Code: R42 - DIZZINESS AND GIDDINESS Status: Resolved Priority: High Current Visit: Yes (4) Orthostatic hypotension SNOMED Code(s): 64159274 ICD Code: I95.1 - ORTHOSTATIC HYPOTENSION Status: Resolved Priority: High Current Visit: Yes (5) Restless leg syndrome SNOMED Code(s): 30195133 ICD Code: G25.81 - RESTLESS LEGS SYNDROME Status: Chronic Priority: Medium Current Visit: Yes - Patient Summary/Data Operative Procedure(s) Performed: egd with bx/colonoscopy. -Gastric ulcer findings Complications: None Consults: Consultations 01/05/18 18:06 Consult to Occupational Therapy [OT Evaluation and Treatment] [CONS] Routine Consult to Physical Therapy [PT Evaluation and Treatment] [CONS] Routine 01/05/18 18:07 Consult to Case Management [CONS] Routine 01/06/18 09:12 Consult to Physician [CONS] Routine 01/06/18 12:01 Consult to Telemetry Monitor [CONS] Routine Labs Pending at D/C: None Recommended Follow-up Testing/Procedures: Follow up with PCP, Dr. Garcia within one week of discharge- recommend hemoglobin at that time to follow anemia. Home Health Care with nursing, EYE CLINIC MANAGER services and PT to continue. Patient is home bound. Will follow up with PCP, Dr. Garcia as above who will assume Home Health Care Services at that time. Planned Operative Procedure(s) after DC: None Hospital Course: Impression: Acute: Anemia----etiology gastric ulcer, noted on EGD yesterday with Dr. Harvey, no active bleeding, old blood noted in cecum but no active ulcerations there. - Hx/o GI Bleed - Risk Factors; Diverticulosis and Chronic Constipation - Hgb dropped to 6.5; recovered to 9.5 S/p 3 units of PRBC transfusion --> 7.8 yesterday morning rec'd 2 units PRBC----rec'd 5 units total during her stay. Hgb is 10.1 today, day of discharge. - Heme-occult positive, iron studies WNL, add B12 and folic acid for full eval - Dr. Hravey consulted--scheduled for endoscopy today Restless Leg Syndrome, Improved as hgb improved - Very difficult to manage initially - Adjust RLS meds: increased Neurontin and Tramadol; Added Klonopin ---- on DC will cont/keep home neurontin dose, DC klonipin and keep requip at HS Resolved: CP Resolved, atypical-->resolved, minimal change in TnI Orthostatic, moderate-severely symptomatic Chronic: Impaired Vision/Hearing HLD Hypothyroidism- TSH WNL Constipation Diverticulosis Urinary Incontinence OA/DJD Osteoporosis Migraines MORSE Anxiety History of Rectocele/Cystocele History of Uterine Prolapse Hx/o CVA on Statin and Plavix----stop plavix during hospital stay and on discharge- readdress with PCP at follow up for restart or different therapy. Hx/o Small Bowel Resection Plan: She is clinically stable Continue current treatment Ischemic work up: troponin x3 all negative Dr. Harvey following-- endoscopy as noted above with gastric ulcer findings. Routine AM Labs DVT/GI prophylaxis Patient will DC home today with [facility] services. Face to face on day of discharge reveals patient will benefit from nursing, EYE CLINIC MANAGER and PT services. She is home bound. Diagnosis of anemia/GIB, weakness will need assistance with bathing/ADL' s from EYE CLINIC MANAGER services, medication education and VS monitoring from nursing and strengthening/balance from PT. She will follow up with PCP, Dr. Lois Garcia within one week of DC who will assume [facility] orders at that time. Patient is Full code status; as above, Dr. Garcia is PCP. - Patient Instructions Diet: Usual Diet as Tolerated, GI Soft/Low Residue/Low Fiber (for the next few days to week) Activity: As Tolerated Driving: Do Not Drive Showering/Bathing: May Shower Notify Provider of: Fever, Increased Pain, Nausea and/or Vomiting - Discharge Plan Prescriptions/Med Rec: Pantoprazole [ProTONIX] 40 mg PO BIDAC #60 tab.cr rOPINIRole [Requip] 1 mg PO BEDTIME #30 tablet Sucralfate [Carafate] 1 gm PO QIDACANDBED 15 Days #1 bottle Home Medications: Home Meds Escitalopram [Lexapro] 20 mg PO DAILY 07/27/15 [History] Gabapentin [Neurontin] 300 mg PO BEDTIME 07/27/15 [History] Glucosamine/Chondro Smith A [Cosamin DS] 1 tab PO DAILY 07/27/15 [History] Levothyroxine [Synthroid] 100 mcg PO DAILY 07/27/15 [History] traMADol [Ultram] 50 mg PO BID PRN 07/27/15 [History] Diclofenac Sodium [Voltaren 1% Gel] 1 dose TOP BID PRN 02/12/17 [History] Pramipexole [Mirapex] 0.5 mg PO BEDTIME 02/12/17 [History] Acetaminophen 325 mg PO BEDTIME PRN 01/05/18 [History] L.acidoph,Paracasei, B.lactis [Probiotic] 1 each PO DAILY 01/05/18 [History] Pantoprazole [ProTONIX] 40 mg PO BIDAC #60 tab.cr 01/09/18 [Rx] Sucralfate [Carafate] 1 gm PO QIDACANDBED 15 Days #1 bottle 01/09/18 [Rx] rOPINIRole [Requip] 1 mg PO BEDTIME #30 tablet 01/09/18 [Rx] Patient Handouts: Blood Transfusion, Adult, [id number], Anemia, Peptic Ulcer , [id number], Food Choices for Peptic Ulcer Disease Referrals: Lois Garcia MD [Physician] - - Discharge Summary/Plan Comment DC Time >30 min.: Yes (45 min) - General Info Date of Service: 01/09/18 Admission Dx/Problem (Free Text: Admission Diagnosis/Problem Admission Diagnosis/Problem Hypotension Ama is seen this morning, daughter present in room. She is doing well. Feels "so much better". No dizziness/lightheadedness when up to BR and with washing up this morning. No SOB/CP or CRAMER. She had BM without blood or black stool noted. No abd pain/n/v. Tolerated breakfast without problems. Gastric ulcer found yesterday on EGD. Will be started on protonix BID and carafate this morning. Functional Status: Reports: Pain Controlled, Tolerating Diet, Ambulating, Urinating, Incentive Spirometry. Denies: New Symptoms - Review of Systems General: Reports: No Symptoms, Weakness (much improved) HEENT: Reports: No Symptoms Pulmonary: Reports: No Symptoms. Denies: Shortness of Breath, Cough Cardiovascular: Reports: No Symptoms. Denies: Chest Pain, Palpitations, Dyspnea on Exertion Gastrointestinal: Reports: No Symptoms. Denies: Abdominal Pain, Diarrhea, Nausea, Vomiting Genitourinary: Reports: No Symptoms Musculoskeletal: Reports: No Symptoms Skin: Reports: No Symptoms Neurological: Reports: No Symptoms Psychiatric: Reports: No Symptoms - Patient Data Vitals - Most Recent: Last Vital Signs Temp 97.3 F 01/09/18 03:14 Pulse 66 01/09/18 03:14 Resp 16 01/09/18 03:14 BP 127/56 L 01/09/18 03:14 Pulse Ox 90 L 01/09/18 03:14 Weight - Most Recent: 116 lb 4 oz I&O - Last 24 hours: Intake & Output 01/08/18 01/09/18 01/09/18 22:59 06:59 14:59 Intake Total 710 600 Balance 710 600 Lab Results - Last 24 hrs: Laboratory Results - last 24 hr 01/06/18 01/08/18 01/08/18 Range/Units 05:50 05:55 20:24 WBC (3.98-10.04) K/mm3 RBC (3.98-5.22) M/mm3 Hgb 9.7 L (11.2-15.7) gm/L Hct 29.8 L (34.1-44.9) % MCV (79.4-94.8) fl MCH (25.6-32.2) pg MCHC (32.2-35.5) g/dl RDW Std Deviation (36.4-46.3) fL Plt Count (182-369) K/mm3 MPV (9.4-12.3) fl Neut % (Auto) (34.0-71.1) % Lymph % (Auto) (19.3-51.7) % Levy % (Auto) (4.7-12.5) % Eos % (Auto) (0.7-5.8) Baso % (Auto) (0.1-1.2) % Neut # (Auto) (1.56-6.13) K/mm3 Lymph # (Auto) (1.18-3.74) K/mm3 Levy # (Auto) (0.24-0.36) K/mm3 Eos # (Auto) (0.04-0.36) K/mm3 Baso # (Auto) (0.01-0.08) K/mm3 Sodium (136-145) mEq/L Potassium (3.5-5.1) mEq/L Chloride (98-107) mEq/L Carbon Dioxide (21-32) mEq/L Anion Gap (5-15) BUN (7-18) mg/dL Creatinine (0.55-1.02) mg/dL Est Cr Clr Drug Dosing mL/min Estimated GFR (MDRD) (>60) mL/min BUN/Creatinine Ratio (14-18) Glucose (83-115) mg/dL Lactic Acid (0.4-2.0) mmol/L Calcium (8.5-10.1) mg/dL C-Reactive Protein (<1.0) mg/dL Vitamin B12 438 (193-986) pg/ml Folate 44.0 (8.6-58.9) ng/mL Blood Type O POSITIVE Gel Antibody Screen Negative Crossmatch See Detail 01/09/18 01/09/18 01/09/18 Range/Units 07:00 07:20 07:20 WBC 5.15 (3.98-10.04) K/mm3 RBC 3.47 L (3.98-5.22) M/mm3 Hgb 10.1 L (11.2-15.7) gm/L Hct 30.4 L (34.1-44.9) % MCV 87.6 (79.4-94.8) fl MCH 29.1 (25.6-32.2) pg MCHC 33.2 (32.2-35.5) g/dl RDW Std Deviation 46.4 H (36.4-46.3) fL Plt Count 132 L (182-369) K/mm3 MPV 10.8 (9.4-12.3) fl Neut % (Auto) 63.8 (34.0-71.1) % Lymph % (Auto) 26.0 (19.3-51.7) % Levy % (Auto) 8.2 (4.7-12.5) % Eos % (Auto) 1.4 (0.7-5.8) Baso % (Auto) 0.6 (0.1-1.2) % Neut # (Auto) 3.29 (1.56-6.13) K/mm3 Lymph # (Auto) 1.34 (1.18-3.74) K/mm3 Levy # (Auto) 0.42 H (0.24-0.36) K/mm3 Eos # (Auto) 0.07 (0.04-0.36) K/mm3 Baso # (Auto) 0.03 (0.01-0.08) K/mm3 Sodium 141 (136-145) mEq/L Potassium 3.6 (3.5-5.1) mEq/L Chloride 108 H (98-107) mEq/L Carbon Dioxide 26 (21-32) mEq/L Anion Gap 10.6 (5-15) BUN 24 H (7-18) mg/dL Creatinine 0.6 (0.55-1.02) mg/dL Est Cr Clr Drug Dosing 56.03 mL/min Estimated GFR (MDRD) > 60 (>60) mL/min BUN/Creatinine Ratio 40.0 H (14-18) Glucose 89 (83-115) mg/dL Lactic Acid 0.7 (0.4-2.0) mmol/L Calcium 7.8 L (8.5-10.1) mg/dL C-Reactive Protein < 0.2 (<1.0) mg/dL Vitamin B12 (193-986) pg/ml Folate (8.6-58.9) ng/mL Blood Type Gel Antibody Screen Crossmatch Med Orders - Current: Current Medications Citalopram Hydrobromide (Celexa) 40 mg PO DAILY [facility] Last Admin: 01/09/18 09:29 Dose: 40 mg Clonazepam (Klonopin) 0.5 mg PO BEDTIME [facility] Last Admin: 01/08/18 22:08 Dose: 0.5 mg Gabapentin (Neurontin) 300 mg PO BID@0900,1600 [facility] Last Admin: 01/09/18 09:29 Dose: 300 mg Gabapentin (Neurontin) 600 mg PO BEDTIME [facility] Last Admin: 01/08/18 22:08 Dose: 600 mg Hydralazine HCl (Apresoline) 10 mg IVPUSH Q4H PRN PRN Reason: Hypertension Levothyroxine Sodium (Synthroid) 100 mcg PO ACBREAKFAST [facility] Last Admin: 01/09/18 06:18 Dose: 100 mcg Lorazepam (Ativan) 0.5 mg IVPUSH Q8H PRN PRN Reason: Anxiety Last Admin: 01/06/18 03:18 Dose: 0.5 mg Magnesium Sulfate (Pharmacy To Dose - Magnesium Replacement) 1 dose .XX ASDIRECTED [facility] Metoprolol Tartrate (Lopressor) 5 mg IVPUSH Q4H PRN PRN Reason: Tachycardia (Glucosamine/Chondro Smith A [Cosamin Ds] 1 Tab)Own Med 1 tab PO DAILY [facility] Last Admin: 01/09/18 09:31 Dose: Not Given Pantoprazole Sodium (Protonix) 40 mg PO BIDAC [facility] Last Admin: 01/09/18 09:29 Dose: 40 mg Potassium Chloride (Pharmacy To Dose - Potassium Replacement) 1 dose .XX ASDIRECTED [facility] Pramipexole Dihydrochloride (Mirapex) 0.5 mg PO BEDTIME [facility] Last Admin: 01/08/18 22:07 Dose: 0.5 mg Ropinirole HCl (Requip) 1 mg PO BID [facility] Last Admin: 01/09/18 09:28 Dose: 1 mg Saccharomyces Boulardii (Florastor) 250 mg PO BID [facility] Last Admin: 01/09/18 09:28 Dose: 250 mg Sucralfate (Carafate) 1 gm PO QIDACANDBED [facility] Last Admin: 01/09/18 09:29 Dose: 1 gm Temazepam (Restoril) 7.5 mg PO BEDTIME PRN PRN Reason: Insomnia Last Admin: 01/05/18 21:36 Dose: 7.5 mg Tramadol HCl (Ultram) 100 mg PO TID [facility] Last Admin: 01/09/18 09:29 Dose: 100 mg Discontinued Medications Buspirone HCl (Buspar) 7.5 mg PO BID [facility] Last Admin: 01/06/18 10:38 Dose: 7.5 mg Clopidogrel Bisulfate (Plavix) 75 mg PO DAILY [facility] Last Admin: 01/07/18 09:37 Dose: 75 mg Enoxaparin Sodium (Lovenox) 40 mg SUBCUT DAILY [facility] Last Admin: 01/07/18 09:37 Dose: 40 mg Ephedrine Sulfate (Ephedrine Sulfate) Confirm Administered Dose 50 mg .ROUTE .STK-MED ONE Stop: 01/08/18 14:02 Furosemide (Lasix) 20 mg IVPUSH ASDIRECTED PRN PRN Reason: Bleeding Last Admin: 01/06/18 14:59 Dose: 20 mg Gabapentin (Neurontin) 300 mg PO BEDTIME [facility] Last Admin: 01/05/18 20:06 Dose: Not Given Gabapentin (Neurontin) 300 mg PO ONETIME ONE Stop: 01/05/18 18:03 Last Admin: 01/05/18 18:08 Dose: 300 mg Gabapentin (Neurontin) 300 mg PO ONETIME ONE Stop: 01/05/18 23:22 Last Admin: 01/05/18 23:38 Dose: 300 mg Gabapentin (Neurontin) 300 mg PO TID [facility] Last Admin: 01/06/18 14:59 Dose: 300 mg Haloperidol Lactate (Haldol) 1 mg IVPUSH ONETIME ONE Stop: 01/06/18 12:07 Last Admin: 01/06/18 12:13 Dose: 1 mg Haloperidol Lactate (Haldol) 2 mg IVPUSH ONETIME ONE Stop: 01/06/18 12:47 Last Admin: 01/06/18 12:52 Dose: 2 mg Sodium Chloride (Normal Saline) 500 mls @ 999 mls/hr IV .BOLUS ONE Stop: 01/05/18 13:59 Last Admin: 01/05/18 13:39 Dose: 999 mls/hr Sodium Chloride (Normal Saline) 500 mls @ 999 mls/hr IV .BOLUS ONE Stop: 01/05/18 16:49 Last Admin: 01/05/18 16:30 Dose: 999 mls/hr Sodium Chloride (Normal Saline) 500 mls @ 500 mls/hr IV ONETIME ONE Stop: 01/05/18 19:14 Last Admin: 01/05/18 18:56 Dose: 500 mls/hr Sodium Chloride (Normal Saline) 1,000 mls @ 100 mls/hr IV ASDIRECTED [facility] Last Admin: 01/05/18 21:47 Dose: 100 mls/hr Sodium Chloride (Normal Saline) 250 mls @ 25 mls/hr IV ASDIRECTED [facility] Last Admin: 01/06/18 09:25 Dose: 25 mls/hr Lidocaine HCl (Xylocaine-Mpf 1%) Confirm Administered Dose 4 mls @ as directed .ROUTE .STK-MED ONE Stop: 01/08/18 10:34 Sodium Chloride (Normal Saline) Confirm Administered Dose 1,000 mls @ as directed .ROUTE .STK-MED ONE Stop: 01/08/18 11:24 Last Admin: 01/08/18 19:34 Dose: Not Given Lidocaine HCl (Xylocaine-Mpf 1%) Confirm Administered Dose 4 mls @ as directed .ROUTE .STK-MED ONE Stop: 01/08/18 12:48 Lactated Ringer's (Ringers, Lactated) Confirm Administered Dose 1,000 mls @ as directed .ROUTE .STK-MED ONE Stop: 01/08/18 14:02 Lorazepam (Ativan) 0.25 mg IVPUSH ONETIME ONE Stop: 01/05/18 16:55 Last Admin: 01/05/18 17:58 Dose: Not Given Lorazepam (Ativan) 0.5 mg IVPUSH ONETIME ONE Stop: 01/05/18 23:20 Last Admin: 01/05/18 23:38 Dose: 0.5 mg Lorazepam (Ativan) 1 mg IVPUSH ONETIME ONE Stop: 01/06/18 13:54 Last Admin: 01/06/18 13:59 Dose: 1 mg Lorazepam (Ativan) 1 mg IVPUSH ONETIME ONE Stop: 01/06/18 15:18 Last Admin: 01/06/18 15:40 Dose: 1 mg Morphine Sulfate (Morphine) 2 mg IVPUSH ONETIME ONE Stop: 01/06/18 13:39 Last Admin: 01/06/18 13:42 Dose: 2 mg Morphine Sulfate (Morphine) Confirm Administered Dose 2 mg .ROUTE .STK-MED ONE Stop: 01/06/18 13:36 Last Admin: 01/06/18 13:44 Dose: Not Given Non-Formulary Medication (L.Acidoph,Paracasei, B.Lactis [Probiotic]) 1 each PO DAILY [facility] Polyethylene Glycol/Electrolytes (Golytely) 4,000 ml PO ONETIME ONE Stop: 01/07/18 17:01 Last Admin: 01/07/18 17:02 Dose: 4,000 ml Potassium Chloride (Klor-Con M20) 40 meq PO ONETIME ONE Stop: 01/07/18 10:31 Last Admin: 01/07/18 11:37 Dose: 40 meq Pramipexole Dihydrochloride (Mirapex) 0.5 mg PO BEDTIME [facility] Last Admin: 01/06/18 01:14 Dose: Not Given Pramipexole Dihydrochloride (Mirapex) 0.5 mg PO BEDTIME ONE Stop: 01/05/18 18:02 Last Admin: 01/05/18 19:08 Dose: Not Given Pramipexole Dihydrochloride (Mirapex) 0.5 mg PO BEDTIME [facility] Pramipexole Dihydrochloride (Mirapex) 0.5 mg PO BEDTIME [facility] Last Admin: 01/05/18 21:36 Dose: 0.5 mg Pramipexole Dihydrochloride (Mirapex) 0.5 mg PO ONETIME ONE Stop: 01/06/18 23:22 Pramipexole Dihydrochloride (Mirapex) 0.5 mg PO ONETIME ONE Stop: 01/05/18 23:46 Pramipexole Dihydrochloride (Mirapex) 0.5 mg PO ONETIME ONE Stop: 01/05/18 23:46 Last Admin: 01/05/18 23:44 Dose: 0.5 mg Pramipexole Dihydrochloride (Mirapex) 0.5 mg PO BEDTIME [facility] Propofol (Diprivan 20 Ml) Confirm Administered Dose 200 mg .ROUTE .STK-MED ONE Stop: 01/08/18 10:34 Propofol (Diprivan 20 Ml) Confirm Administered Dose 200 mg .ROUTE .STK-MED ONE Stop: 01/08/18 12:47 Saccharomyces Boulardii (Florastor) 500 mg PO DAILY [facility] Last Admin: 01/07/18 09:36 Dose: 500 mg Simethicone (Infants' Gas Relief) Confirm Administered Dose 2,000 mg .ROUTE .STK -MED ONE Stop: 01/08/18 13:28 Last Admin: 01/08/18 13:38 Dose: 1,000 mg Tramadol HCl (Ultram) 50 mg PO BID PRN PRN Reason: Pain Last Admin: 01/05/18 18:12 Dose: 50 mg - Exam Quality Assessment: Reports: DVT Prophylaxis General: Reports: Alert, Oriented, Cooperative, Other (color is improved today; more awake, alert, smiling and very talkative today) HEENT: Reports: Pupils Equal, EOMI, Mucous Membr. Moist/[place] Neck: Reports: Supple Lungs: Reports: Clear to Auscultation, Normal Respiratory Effort Cardiovascular: Reports: Regular Rate, Regular Rhythm. Denies: No Murmurs ( resolved- trace murmur was noted yesterday (hgb was 7.8 yesterday)) GI/Abdominal Exam: Normal Bowel Sounds, Soft, Non-Tender. No: Guarding, Rigid, Rebound, Tender (Female) Exam: Deferred Rectal (Female) Exam: Deferred Back Exam: Reports: Normal Inspection Extremities: Normal Inspection, No Pedal Edema, Normal Capillary Refill Neurological: Reports: No New Focal Deficit Psy/Mental Status: Reports: Alert, Normal Affect, Normal Mood *Q Meaningful Use (DIS) - VTE *Q VTE Criteria *Q: - Stroke *Q Stroke Criteria *Q: - AMI *Q AMI Criteria *Q:
== END 2018-01-09 14:10 | disposition home or self-care (01) | DRG 812 ==
LOC: JD.ED 10:48 → JD.MS 17:06 → UNDOADMIN 17:08
PROVIDERS: ADMIT Internal Medicine Cardiovascular Disease; ATTEND Internal Medicine Cardiovascular Disease
PROC: 0DB68ZX Excision of Stomach, Via Natural or Artificial Opening Endoscopic, Diagnostic (ICD-10-PCS; principal; 2018-01-08)
PROC: 30233N1 Transfusion of Nonautologous Red Blood Cells into Peripheral Vein, Percutaneous Approach (ICD-10-PCS; 2018-01-08)
PROC: 0DJD8ZZ Inspection of Lower Intestinal Tract, Via Natural or Artificial Opening Endoscopic (ICD-10-PCS; 2018-01-08)
DX: D64.9 Anemia, unspecified (principal); K92.2 Gastrointestinal hemorrhage, unspecified; K25.3 Acute gastric ulcer without hemorrhage or perforation; I95.1 Orthostatic hypotension; E78.00 Pure hypercholesterolemia, unspecified; F41.9 Anxiety disorder, unspecified; R07.89 Other chest pain; K21.9 Gastro-esophageal reflux disease without esophagitis; G25.81 Restless legs syndrome; E03.9 Hypothyroidism, unspecified; K44.9 Diaphragmatic hernia without obstruction or gangrene; K20.9 Esophagitis, unspecified; K31.7 Polyp of stomach and duodenum; H54.7 Unspecified visual loss; E78.5 Hyperlipidemia, unspecified; K59.00 Constipation, unspecified; K57.30 Diverticulosis of large intestine without perforation or abscess without bleeding; R32 Unspecified urinary incontinence; M19.90 Unspecified osteoarthritis, unspecified site; M81.0 Age-related osteoporosis without current pathological fracture; G43.909 Migraine, unspecified, not intractable, without status migrainosus; Z79.02 Long term (current) use of antithrombotics/antiplatelets; Z79.899 Other long term (current) drug therapy
CPT/HCPCS: 36415; 71045; 80053; 81001; 84443; 84484 ×2; 85025; 85610; 85730; 86140; 86738; 87804 ×2; 87899; 93005; 96360; 96361; 99285; J7040 ×2; 00813; 36430; 80048; 82272; 82607; 82746; 83540; 83605; 84466; 85014; 85018; 86850; 86900; 86901; 86922; 88305; 94762; 97110-GP; 97116-GP; 97162-GP; 97165-GO; 97530-GO; 99222; 99231; 99232; 99233; 99239; A9270-GY; J1630; J1650; J2001; J2060; J2270; J2704; J7050; J7120; P9016

== ENCOUNTER 2019-02-13 09:58 | Day surgery (SDC) | payer MEDICARE, OTHER ==
[~2019-02-13 09:58] MED LIST: Lactated Ringers 1,000 ML IV SCH; Lidocaine 1%/Sod Bicarbonate in NS 8.4% 1 ML Syringe IDERM PRN; Sodium Chloride 0.9% 10 ML Syringe FLUSH PRN
--- NOTE | 2019-02-13 10:15 | PCM.PREANE ---
Preanesthetic Assessment - Procedure Proposed Procedure: diag egd - Anesthesia/Transfusion/Family Hx Anesthesia History: Prior Anesthesia Without Reaction Family History of Anesthesia Reaction: No Transfusion History: Prior Transfusion Without Reaction Intubation History: Unknown - Review of Systems General: No Symptoms Pulmonary: No Symptoms Cardiovascular: No Symptoms Gastrointestinal: No Symptoms Neurological: No Symptoms Other: Reports: Thyroid Problems, Depression, Anxiety - Physical Assessment NPO Status Date: 02/12/19 NPO Status Time: 17:30 Pulse: 61 O2 Sat by Pulse Oximetry: 94 Respiratory Rate: 16 Blood Pressure: 140/74 Temperature: 97.6 F Height: 5 ft 4 in Weight: 51.256 kg ASA Class: 3 Mental Status: Alert & Oriented x3 Airway Class: Mallampati = 1 Dentition: Reports: Normal Dentition, Partial (they are removed- upper and lower ) Thyro-Mental Finger Breadths: 3 Mouth Opening Finger Breadths: 3 ROM/Head Extension: Full Lungs: Clear to Auscultation, Normal Respiratory Effort Cardiovascular: Regular Rate, Regular Rhythm - Allergies Allergies/Adverse Reactions: Allergies Allergy/AdvReac Type Severity Reaction Status Date / Time No Known Allergies Allergy Verified 02/12/19 14:13 - Blood Blood Available: No - Acknowledgements Anesthesia Type Planned: MAC Pt an Appropriate Candidate for the Planned Anesthesia: Yes Alternatives and Risks of Anesthesia Discussed w Pt/Guardian: Yes Pt/Guardian Understands and Agrees with Anesthesia Plan: Yes PreAnesthesia Questionnaire HEENT History: Reports: Hard of Hearing, Impaired Vision Other HEENT History: wears eyeglasses, hearing aids, dentures, eustachian tube dysfunction, rhinological surgery Cardiovascular History: Reports: High Cholesterol Other Cardiovascular History: irregular heart beat, tachycardia Respiratory History: Reports: None Gastrointestinal History: Reports: Bowel Obstruction, Chronic Constipation, Diverticulosis, Other (See Below) Other Gastrointestinal History: nausea/vomiting, small bowel resection, inguinal hernia, gallbladder mass, gastric ulcer, nausea Genitourinary History: Reports: Urinary Incontinence Other Genitourinary History: cystocele, rectocele, pelvic orgran prolapse, stress urinary incontinence [employer] History: Reports: , Prolapsed Uterus Musculoskeletal History: Reports: Arthritis, Osteoporosis Other Musculoskeletal History: DJD, bunions, elbow pain, myalgia, left knee OA, restless leg syndrome, hand surgery Neurological History: Reports: Migraines, Vertigo Other Neuro History: hand tingling, weakness, dizziness Psychiatric History: Reports: Anxiety, Depression, Other (See Below) Other Psychiatric History: fatigue, insomnia Endocrine/Metabolic History: Reports: Hypothyroidism, Vitamin D Deficiency Hematologic History: Reports: Anemia Immunologic History: Reports: None Oncologic (Cancer) History: Reports: None, Squamous Cell Carcinoma 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 Dermatologic History: Reports: Other (See Below) Other Dermatologic History: actinic keratosis, seborrheic keratosis - Past Surgical History Head Surgeries/Procedures: Reports: None HEENT Surgical History: Reports: Cataract Surgery, Naso-Sinus Surgery Other HEENT Surgeries/Procedures: tinnitus Respiratory Surgical History: Reports: None GI Surgical History: Reports: Small Bowel Female Surgical History: Reports: Hysterectomy, Other (See Below) Other Female Surgeries/Procedures: rectocele and cystocele repair Endocrine Surgical History: Reports: Thyroidectomy Neurological Surgical History: Reports: None Musculoskeletal Surgical History: Reports: Knee Replacement Other Musculoskeletal Surgeries/Procedures:: biat knee replacements, R hand- tendon sx Oncologic Surgical History: Reports: None - SUBSTANCE USE Smoking Status *Q: Never Smoker Tobacco Use Within Last Twelve Months: No Second Hand Smoke Exposure: No Days Per Week of Alcohol Use: 0 Recreational Drug Use History: No - HOME MEDS Home Medications: Home Meds Gabapentin [Neurontin] 300 mg PO BID 07/27/15 [History] Glucosamine/Chondro Smith A [Cosamin DS] 1 tab PO DAILY 07/27/15 [History] traMADol [Ultram] 100 mg PO BID PRN 07/27/15 [History] Diclofenac Sodium [Voltaren 1% Gel] 1 dose TOP BID PRN 02/12/17 [History] L.acidoph,Paracasei, B.lactis [Probiotic] 1 each PO DAILY 01/05/18 [History] Pantoprazole [ProTONIX] 40 mg PO BIDAC #60 tab.cr 01/09/18 [Rx] Calcium Carbonate [Calcium] 500 mg PO DAILY 02/12/19 [History] Docusate Sodium [Stool Softener] 100 mg PO DAILY 02/12/19 [History] Estrogens, Conjugated [Premarin Vaginal Crm] 1 dose VAG Q7D 02/12/19 [History] Levothyroxine Sodium [Levoxyl] 112 mcg PO DAILY 02/12/19 [History] Meloxicam 7.5 mg PO DAILY 02/12/19 [History] Multivitamin [Zoo Chews] 1 tab PO DAILY 02/12/19 [History] Sertraline HCl 50 mg PO DAILY 02/12/19 [History] Temazepam 7.5 mg PO BEDTIME 02/12/19 [History] Vitamin B Complex 1 cap PO DAILY 02/12/19 [History] rOPINIRole [Requip] 1 mg PO BID 02/12/19 [History] - CURRENT (IN HOUSE) MEDS Current Meds: Current Medications Lactated Ringer's (Ringers, Lactated) 1,000 mls @ 125 mls/hr IV ASDIRECTED [facility] Stop: 02/13/19 23:00 Lidocaine/Sodium Bicarbonate (Buffered Lidocaine 1% In Ns 8.4%) 0.25 ml IDERM ONETIME PRN PRN Reason: Prior to IV Start Stop: 02/13/19 18:00 Sodium Chloride (Saline Flush) 10 ml FLUSH ASDIRECTED PRN PRN Reason: Keep Vein Open Stop: 02/13/19 18:00
[2019-02-13] MEDS ORDERED: Lidocaine 1% 2 ML ONE (11:26)
[2019-02-13] MEDS ORDERED: Propofol 200 MG/20 ML SDV ONE (11:26)
--- NOTE | 2019-02-13 11:46 | PCM48HPAN ---
Post Anesthesia Note - EVALUATION WITHIN 48HRS OF ANESTHETIC Vital Signs in Normal Range: Yes Patient Participated in Evaluation: Yes Respiratory Function Stable: Yes Airway Patent: Yes Cardiovascular Function Stable: Yes Hydration Status Stable: Yes Pain Control Satisfactory: Yes Nausea and Vomiting Control Satisfactory: Yes Mental Status Recovered: Yes Pulse Rate: 61 Resp Rate: 16 Temperature: 36.4 C Blood Pressure: 140/74
[2019-02-13 11:54] VITALS: BP 117/63
--- NOTE | 2019-02-13 13:13 | OR ---
DATE OF OPERATION: 02/13/2019 SURGEON: Dayne Cooper MD PREOPERATIVE DIAGNOSIS: Postprandial nausea. POSTOPERATIVE DIAGNOSIS: Postprandial nausea. OPERATION PERFORMED: Esophagogastroduodenoscopy with biopsy for Helicobacter pylori. ANESTHESIA: MAC. SPECIMEN: Prepyloric antrum biopsy of the stomach. OPERATIVE FINDINGS: Normal EGD. RECOMMENDATION: Mostly, this is going to be functional nausea and nothing structural that I can see. INDICATION FOR PROCEDURE: This 88-year-old female has nearly daily postprandial nausea. She is on multiple medications. She has no regurgitation, however. DESCRIPTION OF PROCEDURE: After adequate preparation, a gastroscope was inserted into the esophagus. This was passed down to the EG junction. A photograph of this was taken, which was normal. No evidence of reflux esophagitis, strictures, masses, or hiatal hernia. The scope was advanced into the stomach. Both forward and retroflexed views were done and were normal. A biopsy of the prepyloric antrum was taken for H. pylori analysis. The scope was advanced through the pylorus and the first and second parts of the duodenum were also normal. No evidence of ulcerations, strictures, or masses. Air was suctioned from the stomach and the scope removed. ESTIMATED BLOOD LOSS: MMODAL /[id number]
== END 2019-02-13 12:46 | disposition home or self-care (01) ==
LOC: JD.SDS 09:58
PROVIDERS: ATTEND Surgery
DX: K29.50 Unspecified chronic gastritis without bleeding (principal); K31.9 Disease of stomach and duodenum, unspecified; E78.00 Pure hypercholesterolemia, unspecified; E89.0 Postprocedural hypothyroidism; F32.9 Major depressive disorder, single episode, unspecified; F41.9 Anxiety disorder, unspecified; Z79.899 Other long term (current) drug therapy
CPT/HCPCS: 43239; J2001; J2704; J7120